=== PATIENT | female | born 1960 | race Caucasian/White ===

== ENCOUNTER → 2017-07-25 | Outpatient (CLI) | payer OTHER | LOC: YCFC.O 18:18 | PROVIDERS: ATTEND Nurse Practitioner Family | DX: Z00.00 Encounter for general adult medical examination without abnormal findings (principal); Z13.220 Encounter for screening for lipoid disorders; R53.83 Other fatigue; Z13.29 Encounter for screening for other suspected endocrine disorder; R42 Dizziness and giddiness ==

== ENCOUNTER 2017-08-11 13:40 | Emergency (ER) | payer OTHER ==
[2017-08-11 14:53] VITALS: TEMP 98.8
--- NOTE | 2017-08-11 15:23 | RAD ---
EXAM DESCRIPTION: Ankle,Left 3 Views CLINICAL HISTORY: pain,swellng,bruising COMPARISON: None. IMPRESSION: 3 views of the left ankle show no evidence of acute fracture, focal bone destruction, or joint dislocation. Mild soft tissue swelling over the lateral malleolus seen. Ankle mortise appears maintained. Large plantar and small Achilles enthesophytes of the calcaneus are seen. Increased density anterior to the tibial talar junction on lateral projection suggests possible joint effusion. Electronically signed by: Francisco Quinonez MD 08/11/2017 3:22 PM [facility]
--- NOTE | 2017-08-11 15:34 | ED.PDOC ---
History of Present Illness - General Chief Complaint: Lower Extremity Injury Stated Complaint: left ankle pain Time Seen by Provider: 08/11/17 15:26 Source: patient Exam Limitations: no limitations - History of Present Illness Initial Comments: Bryanna Crenshaw 56 y/o female seen in er with pain on left ankle.She stated that she was pinned closed to the metal fence yesterday by her horse then twisting her left ankle in the process.Noticed pain /swelling after incident and soaked left foot in warm epsom salt Occurred: yesterday Pain - Lower Extremity: moderate: Left Ankle Method of Injury: twisted Improving Factors: rest Worsening Factors: movement Associated Symptoms: pain weight bearing Allergies/Adverse Reactions: Allergies NO KNOWN ALLERGY Allergy (Verified 08/11/17 14:52) Home Medications: Ambulatory Orders NK [NK] 08/11/17 Review of Systems - Review of Systems Constitutional: States: no symptoms reported EENTM: States: no symptoms reported Respiratory: States: no symptoms reported Cardiology: States: no symptoms reported Musculoskeletal: States: see HPI All other Systems: Reviewed and Negative, No Change from Baseline Past Medical History (General) - Patient Medical History Hx Stroke: No Hx Congestive Heart Failure: No Hx Diabetes: No Surgical History: other - hysterectomy,knee ,explore lap - Vaccination History Hx Influenza Vaccination: Yes Hx Pneumococcal Vaccination: No - Social History Hx Tobacco Use: Yes - Female History Patient is a Female of Child Bearing Age (10 -59 yrs old): No Family Medical History - Family History Mother Family History: No Known Living Status: Unknown Physical Exam - Physical Exam General Appearance: Alert, Comfortable, No apparent distress Eyes, Ears, Nose, Throat: normal ENT inspection Neck: non-tender, full range of motion, supple Cardiovascular/Respiratory: regular rate, rhythm, no M/R/G, normal peripheral pulses, normal breath sounds Gastrointestinal/Abdominal: non-tender, no organomegaly Back: no CVA tenderness, no vertebral tenderness Thigh/Hip: normal inspection, non-tender, no evidence of injury Knee: normal inspection, non-tender, no evidence of injury Ankle: limited ROM - left ankle painful on dorsiflexion, pain - left ankle, soft tissue tenderness Foot: normal inspection, non-tender, no evidence of injury Mental Status: alert, oriented x 3 Skin: normal color, warm/dry Progress - EKG/XRAY/CT XRAY: ankle - join effusion left ankle Departure - Departure Clinical Impression: Sprain of ankle, left Qualifiers: Encounter type: initial encounter Involved ligament of ankle: unspecified ligament Qualified Code(s): S93.402A - Sprain of unspecified ligament of left ankle, initial encounter Time of Disposition: 15:39 Disposition: Discharge to Home or Self Care Condition: Good Departure Forms: ED Discharge - Pt. Copy, Patient Portal Self Enrollment Instructions: Ankle Sprain, DI for Ankle Sprain Referrals: Ashia Mishra NP [Primary Care Provider] - 1-2 Weeks Home Medications: Ambulatory Orders NK [NK] 08/11/17 Additional Instructions: Elevate left leg at bedtime 20 degrees until better;May use ASPERCREME apply 3 x a day for pain until better;Aleve 1-2 tablets am/pm for pain
[2017-08-11 15:57] VITALS: BP 162/92; O2SAT 94
== END 2017-08-11 15:56 | disposition home or self-care (01) ==
LOC: ER 13:40
DX: S93.402A Sprain of unspecified ligament of left ankle, initial encounter (principal); X50.1XXA Overexertion from prolonged static or awkward postures, initial encounter; Y92.9 Unspecified place or not applicable

== ENCOUNTER → 2017-08-16 | Outpatient (CLI) | payer OTHER ==
--- NOTE | 2017-08-16 11:41 | CT ---
EXAM DESCRIPTION: Abdomen/Pelvis w/wo Contrast CLINICAL HISTORY: ABN WEIGHT GAIN COMPARISON: None. TECHNIQUE: Spiral-axial scans at 5.0 - mm intervals from the lung bases through the pubic symphysis, after water - soluble oral contrast, and scans repeated through the same levels after nonionic IV contrast. Coronal and sagittal 2.0 - mm reconstructions. Delayed helical 5.0 - mm scans, same levels. No adverse reactions. Total Exam DLP: 3613.44 mGy-cm. This exam was performed according to our departmental CT dose-optimization program which includes automated exposure control, adjustment of the mA and/or kV according to patient size and/or use of iterative reconstruction technique; to reduce radiation dose to as low as reasonably achievable (ALARA). FINDINGS: Lung bases and pleura: Negative. Liver, Spleen, Stomach, Adrenal glands: Small gastroesophageal hernia. Solid organs are unremarkable. Small lateral left splenule. Pancreas/Gallbladder/Ducts: Surgical clips in the gallbladder fossa with no fluid. Enlarged caliber common bile duct. Pancreas negative. Kidneys and Ureters: Subcentimeter nonenhancing object in the left kidney most likely cyst but too small to be resolved with CT. Mesentery: No fatty stranding or fascial thickening. No free air or free fluid. Aorta: Moderate atherosclerotic calcification mid and distal aorta calcification single left renal artery ostia. Small Bowel: Contains oral contrast. No significant air-fluid levels. Terminal Ileum/Cecum: Normal caliber containing oral contrast. Small lymph nodes abutting these structures. Appendix not seen. Normal density of the surrounding fat. Colon: Normal caliber. No significant redundancy. Pelvic Organs: Vaginal cuff is unremarkable. No fluid in the cul-de-sac. Ovarian tissue not seen. No adnexal mass. No radiodense stones in the urinary bladder. Spine and Bony Pelvis: Spondylosis in the included thoracic spine. Also T12-L1. Abdominal Wall/Back Soft Tissues diastases of the anterior midline abdominal wall at the umbilicus but not containing bowel. IMPRESSION: 1. No peritoneal or retroperitoneal mass. No free fluid or free air. Normal size of the solid organs. 2. Cholecystectomy, with typical dilation of the common bile duct. 3. Probable cyst left kidney, too small to be resolved by CT. Small gastroesophageal hernia. 4. Diastases of the anterior midline abdominal wall at the umbilicus but no bowel herniation. Electronically signed by: Josue Bernabe MD 08/16/2017 11:40 AM [facility]
--- NOTE | 2017-08-16 14:37 | MRI ---
EXAM DESCRIPTION: Lower Extremity, right: MRI. CLINICAL HISTORY: RT FOOT PAIN COMPARISON: CT scan of abdomen and pelvis on the same visit. TECHNIQUE: Multiplanar, high-field MRI, multiple sequences, without contrast: Right ankle. FINDINGS: Effusion in the lateral gutter of the ankle mortise. No osteochondral lesions in the ankle mortise, posterior horn mid subtalar joints. No osteochondral lesions in the mid tarsal joints. No effusions in these joints. Sinus tarsi is unremarkable. Medial and lateral stabilizing ligaments of the ankle are unremarkable. Soft tissue edema posterior to the flexor retinaculum anterior to the Achilles tendon. Immediate signal in the distal peroneal is brevis tendon. Normal signal of the insertion of the base of the metatarsal. Medial posterior flexor tendons with normal signal. No fluid or soft tissue mass in the tarsal tunnel. Normal signal in the included plantar fascia and the Achilles tendon. No abnormal marrow edema in the included osseous structures. IMPRESSION: 1. Effusion in the lateral gutter of the ankle mortise. The ankle mortise is congruent. No osteochondral lesions or loose bodies. Edema between the Achilles tendon and the posterior flexor retinaculum. 2. Included ligaments and tendons with normal signal. Electronically signed by: Josue Bernabe MD 08/16/2017 2:36 PM [employer] INSTRU[employer]
== END ==
LOC: MRI 07:08
PROVIDERS: ATTEND Nurse Practitioner Family
DX: R10.9 Unspecified abdominal pain (principal); Q79.59 Other congenital malformations of abdominal wall; M79.671 Pain in right foot; R60.0 Localized edema; Z98.890 Other specified postprocedural states

== ENCOUNTER 2017-08-18 16:37 | Emergency (ER) | payer OTHER ==
--- NOTE | 2017-08-18 16:54 | ED.PDOC ---
History of Present Illness - General Chief Complaint: ENT Problem Stated Complaint: Nosebleed Time Seen by Provider: 08/18/17 16:50 Source: patient - History of Present Illness Initial Comments: Bryanna Crenshaw 56 y/o female stated that she started with nosebleed on left nostril this afternoon x 3 it stopped with pressure on nostrils then had similar one w/c stopped then third time even with pressure for 30 minutes bleeding got worse and did not sopped this time accompanied by sharp headache behind her nose and eyes radiating to top of head.No history of any trauma, nasal congestion,sneezing or cough. Timing/Duration: intermittent, this afternoon EENT Location: nose - left Prearrival Treatment: squeezing nostrils Improving Factors: nothing, eating Associated Symptoms: other - see hpi Allergies/Adverse Reactions: Allergies NO KNOWN ALLERGY Allergy (Verified 08/18/17 16:50) Home Medications: Ambulatory Orders NK [NK] 08/11/17 Review of Systems - Review of Systems Constitutional: States: no symptoms reported EENTM: States: see HPI Respiratory: States: no symptoms reported Cardiology: States: no symptoms reported Gastrointestinal/Abdominal: States: no symptoms reported Genitourinary: States: no symptoms reported Musculoskeletal: States: no symptoms reported Neurological: States: see HPI, headache Past Medical History (General) - Patient Medical History Hx Stroke: No Hx Congestive Heart Failure: No Hx Diabetes: No Surgical History: cholecystectomy, other - hysterectomy ,knee - Vaccination History Hx Influenza Vaccination: Yes - 2016 Hx Pneumococcal Vaccination: No - Social History Hx Tobacco Use: No Hx Physical Abuse: No Hx Emotional Abuse: No Hx Suspected Abuse: No - Activities of Daily Living Grooming Ability: Independent Eating (Feeding) Ability: Independent Toileting Ability: Independent Family Medical History - Family History Mother Family History: No Known Living Status: Unknown Physical Exam - Physical Exam General Appearance: Alert, Anxious, No apparent distress Eye Exam: bilateral normal Ear Exam: bilateral ear: auricle normal, canal normal, TM normal Nasal Exam: active bleeding - left nostril Throat Exam: normal mouth inspection, pharynx normal Neck: non-tender, full range of motion, supple Cardiovascular/Respiratory: regular rate, rhythm, no M/R/G, normal peripheral pulses Neurologic: alert, oriented x 3 Skin Exam: normal color, warm/dry Progress - Progress Progress: 08/18/17 18:21 Last Vital Signs Temp 98.8 F 08/18/17 16:44 Pulse 96 H 08/18/17 17:40 Resp 18 08/18/17 17:40 BP 158/78 08/18/17 17:40 Pulse Ox 97 08/18/17 17:40 - Results/Orders Results/Orders: Laboratory Tests 08/18/17 08/18/17 08/18/17 17:28 17:28 17:28 WBC 8.8 RBC 4.87 Hgb 14.1 Hct 42.3 MCV 86.9 MCH 28.9 MCHC 33.3 RDW 13.3 Plt Count 325 MPV 6.9 L Absolute Neuts (auto) 5.50 Absolute Lymphs (auto) 2.40 Absolute Monos (auto) 0.70 Absolute Eos (auto) 0.20 Absolute Basos (auto) 0.10 Neutrophils % 62.4 Lymphocytes % 26.7 Monocytes % 8.3 Eosinophils % 2.0 Basophils % 0.6 PT 9.9 INR 0.870 Sodium 143 Potassium 3.7 Chloride 110 Carbon Dioxide 24 Anion Gap 12.7 BUN 14 Creatinine 0.59 L BUN/Creatinine Ratio 23.7 H Random Glucose 112 H Serum Osmolality 286.2 Calcium 9.3 Total Bilirubin 0.5 AST 26 ALT 24 Alkaline Phosphatase 72 Serum Total Protein 7.3 Albumin 4.1 Globulin 3.2 Albumin/Globulin Ratio 1.3 - EKG/XRAY/CT CT Ordered: Yes - head-no acute abnormality Procedures - Additional Procedures Progress: Anterior packing done with rhino pack on the left nostril.tolerated well Departure - Departure Clinical Impression: Epistaxis not due to trauma Headache Qualifiers: Headache type: unspecified Headache chronicity pattern: unspecified pattern Intractability: not intractable Qualified Code(s): R51 - Headache Time of Disposition: 18:26 Disposition: Discharge to Home or Self Care Departure Forms: ED Discharge - Pt. Copy, Patient Portal Self Enrollment Instructions: DI for Nosebleed, Nosebleed, Nosebleeds (Alternative Therapy) Referrals: Ashia Mishra NP [Primary Care Provider] - 1-2 Weeks Home Medications: Ambulatory Orders NK [NK] 08/11/17 Additional Instructions: Return to [facility] - ER for removal of packing PM-08/19/17 Follow up with primary Md 08/22/2017 as needed
[2017-08-18] MEDS ORDERED: OXYMETAZOLINE NASAL SPRAY 15 ML BTTL BNAS PRN (17:15)
[2017-08-18] MEDS ORDERED: MORPHINE SULFATE INJ 10 MG/ML VIAL IM ONE (17:52)
[2017-08-18] MEDS ORDERED: PROMETHAZINE HCL INJ 25 MG/ML VIAL IM ONE (17:52)
--- NOTE | 2017-08-18 18:19 | CT ---
EXAM: Head CLINICAL INDICATION: 56-year-old female with headache and nosebleed. COMPARISON: None. TECHNIQUE: CT brain without contrast. This exam was performed according to our departmental dose optimization program which includes use of automated exposure control, adjustment of the mA and/or kV according to patient size and/or use of iterative reconstruction technique. FINDINGS: The ventricles, sulci, and cisterns are within normal limits. The griffith-white matter differentiation is preserved. There is no mass effect, midline shift, intra- or extra-axial fluid collection/acute hemorrhage. The osseous structures are unremarkable. The paranasal sinuses and mastoid air cells are clear. IMPRESSION: No acute intracranial abnormalities. Electronically signed by: Marta Howe MD 08/18/2017 6:18 PM [employer]ACING GRINDER
[2017-08-18 18:57] VITALS: BP 162/87; TEMP 98.1; O2SAT 96
== END 2017-08-18 18:40 | disposition home or self-care (01) ==
LOC: ER 16:37
DX: R04.0 Epistaxis (principal); R51 Headache
CPT/HCPCS: 36415; 70450; 80053; 85025; 85610; J2270; J2550

== ENCOUNTER → 2017-08-31 | Outpatient (CLI) | payer OTHER | LOC: LAB.O 10:50 | PROVIDERS: ATTEND Internal Medicine Gastroenterology | DX: R19.7 Diarrhea, unspecified (principal) ==

== ENCOUNTER → 2017-09-06 | Outpatient (CLI) | payer OTHER | LOC: LAB.O 15:09 | PROVIDERS: ATTEND Internal Medicine Gastroenterology | DX: R19.7 Diarrhea, unspecified (principal) ==

== ENCOUNTER → 2017-10-28 | Outpatient (CLI) | payer OTHER | LOC: LAB.O 15:25 | PROVIDERS: ATTEND Nurse Practitioner Family | DX: R10.829 Rebound abdominal tenderness, unspecified site (principal); R30.0 Dysuria ==

== ENCOUNTER → 2017-10-28 | Outpatient (CLI) | payer OTHER ==
--- NOTE | 2017-10-31 00:30 | RAD ---
Procedure: XR ABDOMEN 1 VIEW (KUB) Exam Date: 10/28/2017 Ordering Provider: AMIE Mishra Clinical Indication: ABD TENDERNESS Comparison: 08/16/2017 Findings: There is no bowel distention. There is no definite pneumoperitoneum. Diaphragm excluded from the exam. There are no suspicious calcifications. There is no acute skeletal abnormality. Impression: 1. No acute findings. Electronically signed by: Kailash Chacon MD 10/31/2017 12:29 AM CDT
== END ==
LOC: RAD 19:38
PROVIDERS: ATTEND Nurse Practitioner Family
DX: R10.829 Rebound abdominal tenderness, unspecified site (principal)

== ENCOUNTER → 2017-11-16 | Outpatient (CLI) | payer OTHER ==
--- NOTE | 2017-11-17 10:09 | RAD ---
EXAM DESCRIPTION: Knee,Left Complete CLINICAL HISTORY: 57 years, Female, KNEE PAIN COMPARISON: None TECHNIQUE: Four views of the left knee including standing views FINDINGS: No fracture or dislocation. Bones appear normally mineralized with normal trabecular pattern. Normal appearance of medial and lateral compartments on frontal view. Mild spurring of tibial spines. Lateral view shows normal position of the patella. No patellar spurring or enthesopathy. Question small suprapatellar knee joint effusion. Normal contour of quadriceps and patellar tendons. No abnormal patellar tilt or subluxation on patellar sunrise view. IMPRESSION: Negative for fracture or dislocation. Electronically signed by: Felix Sampson MD 11/17/2017 10:08 AM CDT
--- NOTE | 2017-11-17 10:10 | RAD ---
EXAM DESCRIPTION: Pelvis CLINICAL HISTORY: 57 years Female, HIP PAIN COMPARISON: None. TECHNIQUE: Single frontal view of pelvis and hips FINDINGS: No fracture of the bones of the pelvic ring. No bony destructive lesion. Bone island in the right ilium. Sacrum appears intact. Normal proximal femurs without hip fracture or dislocation. Degenerative changes are present at the pubic symphysis. IMPRESSION: Negative for fracture or bony destructive lesion. Electronically signed by: Felix Sampson MD 11/17/2017 10:09 AM CDT
== END ==
LOC: RAD 12:11
PROVIDERS: ATTEND Nurse Practitioner Family
DX: M25.562 Pain in left knee (principal); M25.552 Pain in left hip

== ENCOUNTER 2018-06-06 12:33 | Observation (INO) | payer OTHER ==
--- NOTE | 2018-06-06 12:46 | ED.PDOC ---
History of Present Illness - General Chief Complaint: Cardiovascular Problem Stated Complaint: CHEST PAIN WITH NEAR SYNCOPE Time Seen by Provider: 06/06/18 12:39 Source: patient Exam Limitations: no limitations - History of Present Illness Initial Comments: THE PATIENT PRESENTS TO THE ED WITH COMPLAINT OF CHEST PAIN THAT IS CENTRALIZED IN NATURE. SHE STATES THIS HAS BEEN INTERMITTENT SINCE YESTERDAY.THE PATIENT STATES THAT THE PAIN IS PRESSURE-LIKE IN NATURE.THE PATIENT STATES THAT AMBULATION CAUSES HER TO HAVE NEAR SYNCOPE DUE TO THIS ISSUE. THE PATIENT ALSO COMPLAINED OF SHORTNESS OF BREATH AND THE SENSATION THAT SHE IS UNABLE TO CATCH HER BREATH DUE TO THIS ISSUE.FURTHERMORE THE PATIENT ALSO COMPLAINS OF GENERALIZED ABDOMINAL PAIN WITH THIS ISSUE. THE PATIENT STATES THAT IT IS SHARP IN NATURE AND SHE IS NOTED TO HAVE DIARRHEA ASSOCIATED WITH THIS ISSUE.THE PATIENT STATES NO FEVER, CHILLS, VOMITING, OR VERTIGO WITH EXTENSIVE QUESTIONING. Timing/Duration: 24 hours Severity: moderate Improving Factors: rest Worsening Factors: movement Associated Symptoms: chest pain, malaise, shortness of breath, weakness Allergies/Adverse Reactions: Allergies Promethazine [From Phenergan] Adverse Reaction (Verified 06/06/18 12:57) Home Medications: Ambulatory Orders Hydroxyzine HCl 50 mg PO BEDTIME 06/06/18 Losartan Potassium & Hydrochlo [Losartan Potassium/Hydroc 50-12.5 mg] 1 tab PO DAILY 06/06/18 Review of Systems - Review of Systems Review of Systems: 06/06/18 12:46 A 10 POINT REVIEW OF SYSTEMS WAS DONE AT THE PATIENT'S BEDSIDE AND IS NEGATIVE EXCEPT NOTED IN THE PATIENT'S HPI Past Medical History (General) - Patient Medical History Hx Seizures: No Hx Stroke: No Hx Dementia: No Hx Asthma: No Hx of COPD: No Hx Cardiac Disorders: No Hx Congestive Heart Failure: No Hx Pacemaker: No Hx Hypertension: No Hx Thyroid Disease: No Hx Diabetes: No Hx Gastroesophageal Reflux: No Hx Renal Disease: No Hx Cancer: No Hx of HIV: No Hx Hepatitis C: No Hx MRSA: No - Vaccination History Hx Tetanus, Diphtheria Vaccination: No Hx Influenza Vaccination: Yes Hx Pneumococcal Vaccination: No - Social History Hx Tobacco Use: No Hx Chewing Tobacco Use: No Hx Alcohol Use: No Hx Substance Use: No Hx Substance Use Treatment: No Hx Depression: No Hx Physical Abuse: No Hx Emotional Abuse: No Hx Suspected Abuse: No - Female History Patient : No Family Medical History - Family History Mother Family History: No Known Living Status: Unknown Physical Exam - Physical Exam General Appearance: Alert, Comfortable Eye Exam: bilateral normal Ears, Nose, Throat: hearing grossly normal, normal ENT inspection Neck: non-tender, full range of motion Respiratory: chest non-tender, lungs clear, normal breath sounds Cardiovascular/Chest: normal peripheral pulses, regular rate, rhythm Peripheral Pulses: radial,right: 2+, radial,left: 2+ Gastrointestinal/Abdominal: normal bowel sounds, other - THERE IS TTP OF THE LLQ NOTED ON EXAMINATION AT THIS TIME. Back Exam: normal inspection, no CVA tenderness Extremity: normal range of motion, non-tender Neurologic: autocad operator II-XII nml as tested, no motor/sensory deficits, alert, normal mood/affect, oriented x 3 Skin Exam: normal color, warm/dry Progress - Progress Progress: 06/06/18 12:50 MDM (DDX) MYOCARDIAL INFARCTION, UNSTABLE ANGINA, ANGINA, ANXIETY, PULMONARY EMBOLISM, ATYPICAL CHEST PAIN, AORTIC DISSECTION, PNEUMONIA, GASTROESOPHAGEAL REFLUX DISEASE, COSTOCHONDRITIS, PLEURISY, CHEST WALL PAIN, DYSPNEA, CONGESTIVE HEART FAILURE, CHRONIC OBSTRUCTIVE PULMONARY DISEASE, BRONCHITIS, BILIARY DISEASE. PT APPEARS TO BE AT MODERATE RISK FOR ANGINA/ACS WHICH WE WILL EVALUATE VIA CARDIAC ENZYMES. PT WILL HAVE CXR TO EVALUATE FOR AORTIC DISSECTION/PNA/CHF AT THIS TIME. PT APPEARS TO HAVE LOW LIKELIHOOD OF BILIARY DZ 2/2 TO NO PAIN IN THE RIGHT UPPER QUADRANT NOTED. DUE TO HER SOB WELL CHEST PAIN, WILL ORDER CT CHEST AND DUE TO ABDOMINAL PAIN WILL ORDER A CT AP TO EVALUATE FOR INTRAABDOMINAL PATHOLOGY. DISPO WILL BE DEPENDENT UPON FINDINGS DURING THE PATIENT'S ED WORK UP 06/06/18 14:07 THE PATIENT NOTES DECREASE IN HER PAIN S/P MORPHINE SULFATE ADMINISTRATION. WE HAVE DISCUSSED ALL LABS EXCEPT UA RESULTS. THE PATIENT IS ADVISED WE WILL DISCUSS HER UA/CT RESULTS WHEN AVAILABLE. 06/06/18 14:32 THE PATIENT REMAINS STABLE AT THIS TIME. I HAVE ADVISED THE PATIENT OF AVAILABLE LAB AND RADIOLOGICAL RESULTS. SHE IS ADVISED THAT SHE WILL BE ADMITTED TO THE HOSPITAL DUE TO HER CHEST PAIN AND NEAR SYNCOPE. THE PATIENT IS IN AGREEMENT W/ THIS PLAN. SHE HAS NO QUESTIONS AT THIS TIME. - EKG/XRAY/CT EKG: Sinus, Tachy, nonspecific ST T wave Chg Comments: REGULAR 102 BPM, AXIS IS LEFT - Consult/PCP Time Called: 14:31 Consult/PCP: MR. LOGAN VENEER JOINTER RETURNER Consult Reason/Comments: DISCUSSED LAB/RADIOLOGICAL DATE. AGREES TO ADMIT. Departure - Departure Clinical Impression: Abdominal pain, Flank pain Chest pain Qualifiers: Chest pain type: unspecified Qualified Code(s): R07.9 - Chest pain, unspecified Disposition: Admit Patient Condition: Fair Home Medications: Ambulatory Orders Hydroxyzine HCl 50 mg PO BEDTIME 06/06/18 Losartan Potassium & Hydrochlo [Losartan Potassium/Hydroc 50-12.5 mg] 1 tab PO DAILY 06/06/18 Decision To Admit - Decistion To Admit Decision to Admit Reason: Admit from ER Decision to Admit Date: 06/06/18 Decision to Admit Time: 14:35
[2018-06-06] MEDS ORDERED: ONDANSETRON INJ 4 MG/2 ML VIAL IV ONE (12:54)
[2018-06-06] MEDS ORDERED: SODIUM CHLORIDE 0.9% 1000ML 1,000 ML IVS ONE (12:55)
[2018-06-06] MEDS: SODIUM CHLORIDE 0.9% (FLUSH) 10 ML SYG IV PRN ×2 (13:08→16:15)
[2018-06-06] MEDS ORDERED: MORPHINE SULFATE INJ 10 MG/ML VIAL IV ONE ×2 (13:23→14:31)
--- NOTE | 2018-06-06 14:17 | CT ---
EXAM DESCRIPTION: Abdomen/Pelvis w/Contrast CLINICAL HISTORY: ABDOMINAL PAIN. COMPARISON: August 16, 2017 TECHNIQUE: CT of the abdomen and Pelvis was performed with IV contrast. This exam was performed according to our departmental dose-optimization program, which includes automated exposure control, adjustment of the mA and/or kV according to patient size and/or use of iterative reconstruction technique. FINDINGS: No lung base abnormality. No pneumoperitoneum, adenopathy or ascites. No abdominal aortic aneurysm or dissection. There is a small hiatal hernia. No gastric wall thickening. A 4.5 cm diverticulum arises from the duodenum medially at the junction of the second and third segments. A second 4 cm diverticulum arises from the superior margin of the third duodenal segment. The gallbladder is surgically absent. The liver, spleen, pancreas, adrenals and kidneys are unremarkable. No dilated small bowel loops or mesenteric inflammation. No bladder wall thickening. The uterus and ovaries are unremarkable for patient's age. Postoperative changes are noted in the rectosigmoid colon without colonic wall thickening or pericolonic inflammation. There is occasional sigmoid diverticulosis. No concerning bone lesion. IMPRESSION: Postoperative changes in the colon and colonic diverticulosis, but no diverticulitis or other acute abnormality in the abdomen or pelvis to explain patient's symptoms. Two large duodenal diverticula without diverticulitis or other acute complication. Electronically signed by: Fredo Butcher MD 06/06/2018 2:15 PM CERTIFIED PERSONAL FINANCE COUNSELOR
--- NOTE | 2018-06-06 14:20 | CT ---
EXAM DESCRIPTION: CTA Chest CLINICAL HISTORY: SOB COMPARISON: None available TECHNIQUE: Chest CTA was performed with IV contrast including MIP and/or Three-D reconstructed images. This exam was performed according to our departmental dose-optimization program, which includes automated exposure control, adjustment of the mA and/or kV according to patient size and/or use of iterative reconstruction technique. FINDINGS: Limited sensitivity for dictation of pulmonary embolus and distal branches of the pulmonary arteries due to delayed timing of imaging relative to contrast bolus of menstruation. With this in mind, no central pulmonary bolus is identified. Coronary artery calcifications are noted. No thoracic aortic aneurysm or dissection. No pleural or pericardial effusion. Small hiatal hernia. No mediastinal or hilar adenopathy. No airspace consolidation or lung mass. No axillary adenopathy, breast or other chest wall lesion. No fracture or pneumothorax. IMPRESSION: Slightly limited examination as detailed above with no evidence of central pulmonary embolus or other acute intrathoracic abnormality. Electronically signed by: Fredo Butcher MD 06/06/2018 2:19 PM MEDICAL BILLING ASSISTANT
--- NOTE | 2018-06-06 15:03 | HP ---
SUPERVISING PHYSICIAN: Jn Calvin M.D. CHIEF COMPLAINT: Chest pain with near syncope. HISTORY OF PRESENT ILLNESS: This is a 57 year-old female who came to the Emergency Room with chest pain. She states that the last couple of days she has had a feeling where she really could not catch her breath. When she tries to take a deep breath she feels like she is going to pass out. This has been associated with some chest pain. Also, she has had some right flank pain and some abdominal discomfort and even had a few episodes of diarrhea as well. She denies any fever or chills, but due to the chest pain today she was brought to the Emergency Room. Her workup included multiple radiographs as well as labs. She was eventually given morphine for the pain and that eliminated the pain at that point. Her labs showed a mild elevation in hemoglobin at 16.1 and hematocrit was 48.2, platelet count 382. There was no WBC elevation. Coags were negative. There was a mild elevation in BUN at 19, otherwise glucose is 171 and the rest of her chemistry was unremarkable. She had 2 negative troponins, one at 1255 and one at 1435. EKG showed nonspecific ST changes and in fact she has been to a photo tube assembler due to the abnormal EKG. She states that she saw one in [place] and he placed her on Losartan/HCTZ for hypertension, and plans on doing a stress test at some point but she has not had one as of yet. She states she has not had any abnormal new stresses and states that she britt with stress pretty well. PAST MEDICAL HISTORY: 1. Hypertension. 2. Insomnia. PAST SURGICAL HISTORY: 1. Neck surgery. 2. Two right knee surgeries. 3. Hysterectomy. 4. Cholecystectomy. 5. Small bowel resection and revision of the small bowel resection due to what sounds like a leaking anastomosis. CURRENT MEDICATIONS: 1. Hydroxyzine 50 mg p.o. at bedtime. 2. Losartan/HCTZ 50/12.5 p.o. daily. ALLERGIES: PROMETHAZINE. FAMILY HISTORY: Reviewed and noncontributory. SOCIAL HISTORY: The patient has a distant history of smoking but quit a long time ago. Does not drink alcohol or utilize illicit drugs. She is . REVIEW OF SYSTEMS: CONSTITUTIONAL: No fever or chills. No recent weight loss or weight gain. HEENT: No headaches, vision changes, ear pain, nasal congestion or throat pain. CARDIOVASCULAR: Positive for chest pain. No palpitations. No peripheral edema. RESPIRATORY: Positive for some shortness of breath. No cough or hemoptysis. GASTROINTESTINAL: No nausea or vomiting. She did have episodes of diarrhea. No constipation. Positive for abdominal pain, right flank as well as bilateral lower abdominal. GENITOURINARY: No dysuria, frequency or flank pain. HEMATOLOGIC: No easy bruising or transfusion reaction. ENDOCRINE: No polydipsia, polyuria or polyphagia. No heat or cold intolerance. NEUROLOGIC: Near syncope but no seizures, paresthesias or full syncope. INTEGUMENT: No rashes, lesions or wounds. PHYSICAL EXAMINATION: VITAL SIGNS: Blood pressure 110/53, heart rate 84, respiratory rate 20, temperature 98.0, oxygen saturation 100%. GENERAL: Ms. Crenshaw is a 57 year-old female in no active distress currently. HEENT: Head is normocephalic and atraumatic. Eyes: Pupils are equal and reactive. Nose: With no drainage. Throat: Moist mucosa. NECK: Supple. Midline trachea. No jugular venous distention. CHEST: Symmetrical with equal rise and fall of the chest with inspiration and expiration. Lung sounds are clear to auscultation bilaterally. CARDIOVASCULAR: The patient has a regular rate and rhythm. Normal S1 and S2. ABDOMEN: Soft. Positive bowel sounds. GENITOURINARY: Exam is deferred. EXTREMITIES: Lower extremities with no edema, 2+ pulses. Capillary refill is less than 2 seconds. NEUROLOGIC: The patient is alert and oriented. Moves all extremities. Extraocular movements are intact. LABORATORY: As discussed in the History of Present Illness. She had a CTA of the chest which was negative for pulmonary embolism and essentially negative for any other acute findings. CT scan of the abdomen and pelvis was done as well which shows chronic postoperative changes but no acute infectious process. ASSESSMENT: 1. Chest pain, rule out ACS. 2. Hypertension. 3. Dehydration. 4. Near syncope. PLAN: Will place the patient in the observation status with serial cardiac enzymes as well as EKGs. She is on continuous cardiac monitoring. Will monitor this as well. I am going to go ahead and check her thyroid numbers and place her on DVT prophylaxis as well. In the event everything is negative, I recommend that we contact her photo tube assembler that she saw about a month ago in [place] and see if he would like to see her sooner. #[id number] MTDD
[2018-06-06] MEDS ORDERED: ACETAMINOPHEN 325 MG TAB PO PRN (15:51)
[2018-06-06] MEDS ORDERED: SODIUM CHLORIDE 0.9% (FLUSH) 10 ML SYG IV PRN (15:51)
[2018-06-06] MEDS ORDERED: MORPHINE SULFATE INJ 10 MG/ML VIAL IV PRN (15:51)
[2018-06-06] MEDS ORDERED: IV SET AND CAP CHANGE INJ INJ SCH (16:00)
[2018-06-06] MEDS ORDERED: ENOXAPARIN SODIUM 40 MG/0.4 ML SYG SUBCU SCH (16:00)
[2018-06-06] MEDS: LACTATED RINGERS 1,000 ML IVS PRN (16:15)
--- NOTE | 2018-06-06 17:09 | US ---
Procedure: US CAROTID DOPPLER BILATERAL Exam Date: 06/06/2018 Ordering Provider: Filemon Vick Clinical Indication: near syncope Comparison: None TECHNIQUE : Real-time cerebrovascular ultrasonography was obtained from sternal notch to the angle of the mandible bilaterally utilizing griffith scale, color flow and spectral Doppler analysis. Systolic velocity ratios were calculated for internal carotid artery to common carotid artery bilaterally. FINDINGS: RIGHT CAROTID BIFURCATION: Mild atherosclerotic plaque. Peak systolic and end-diastolic velocities in the right internal carotid artery are 109 and 37 cm/s. Internal carotid/common carotid ratio is 1.3. Right vertebral flow is antegrade. LEFT CAROTID BIFURCATION: Mild atherosclerotic plaque. Peak systolic and end-diastolic velocities in the left internal carotid artery are 99 and 34 cm/s. Internal carotid/common carotid ratio is 1.0. Left vertebral flow is antegrade. IMPRESSION: 1. Mild atherosclerotic plaque in each carotid bulb and ICA origin. 2. There is no significant stenosis (less than 50%) at either ICA origin. 3. Bilateral antegrade vertebral artery flow. Electronically signed by: Kailash Chacon MD 06/06/2018 5:08 PM [facility]
[2018-06-06] MEDS ORDERED: HYDROcodone 5MG/APAP 325MG 1 EA TAB ONE (17:28)
[2018-06-06] MEDS: HYDROcodone 5MG/APAP 325MG 1 EA TAB PO PRN (17:32)
[2018-06-06] MEDS ORDERED: ONDANSETRON INJ 4 MG/2 ML VIAL IV PRN (20:24)
[2018-06-06] MEDS ORDERED: hydrOXYzine HCl 10 MG TAB ONE (20:45)
[2018-06-06] MEDS: SODIUM CHLORIDE 0.9% (FLUSH) 10 ML SYG IV SCH (20:50)
[2018-06-06] MEDS ORDERED: hydrOXYzine HCl 25 MG TAB PO SCH (21:00)
[2018-06-07] MEDS ORDERED: HYDROmorphone HCL INJ 2 MG/ML VIAL ONE (01:04)
[2018-06-07] MEDS ORDERED: HYDROmorphone HCL INJ 2 MG/ML VIAL IV ONE (01:07)
[2018-06-07] MEDS ORDERED: ONDANSETRON INJ 4 MG/2 ML VIAL IV ONE (01:09)
[2018-06-07] MEDS: LACTATED RINGERS 1,000 ML IVS PRN (01:36)
--- NOTE | 2018-06-07 02:29 | CT ---
CT head without contrast on 06/07/2018 CLINICAL INDICATION: Headache, nausea and vomiting TECHNIQUE: Multiple axial images are obtained throughout the head without the administration of contrast. This exam was performed according to our departmental dose-optimization program, which includes automated exposure control, adjustment of the mA and/or kV according to patient size and/or use of iterative reconstruction technique. Total DLP is 859.97 mGy*cm. COMPARISON: 03/03/2018 FINDINGS: There is no hydrocephalus. There is no CT evidence of acute infarct. There is no hemorrhage. There are no abnormal extra-axial fluid collections. There is no mass, mass effect or midline shift. No bony abnormality is noted. IMPRESSION: No acute intracranial abnormality. Electronically signed by: Aren King 06/07/2018 2:[address] [facility]
[2018-06-07] MEDS: NITROGLYCERIN 0.4 MG 25 EA TAB SL PRN ×2 (05:18→05:24)
[2018-06-07] MEDS ORDERED: LOSARTAN POTASSIUM 25 MG TAB PO SCH (09:00)
[2018-06-07] MEDS ORDERED: ASPIRIN TABLET 325 MG TAB PO SCH (09:00)
[2018-06-07] MEDS: SODIUM CHLORIDE 0.9% (FLUSH) 10 ML SYG IV SCH (09:05)
[2018-06-07] MEDS ORDERED: KETOROLAC TROMETHAMINE INJ 30 MG/ML VIAL IV ONE (09:39)
--- NOTE | 2018-06-07 10:26 | RAD ---
EXAM DESCRIPTION: Abdomen Flat Upright CLINICAL HISTORY: 57 years Female, N/V difuse abdominal pain COMPARISON: None. FINDINGS: Supine and upright views of the abdomen. Unremarkable bowel gas pattern. No mass or calculus. Clips from previous cholecystectomy. Lung bases clear. IMPRESSION: Negative Electronically signed by: Bam Desouza MD 06/07/2018 10:24 AM [facility]
[2018-06-07] MEDS: HYDROcodone 5MG/APAP 325MG 1 EA TAB PO PRN (11:47)
[2018-06-07] MEDS ORDERED: MAGNESIUM HYDROXIDE 30 ML UD PO ONE (12:18)
[2018-06-07 13:41] VITALS: BP 110/78; TEMP 98.4; O2SAT 98
--- NOTE | 2018-06-13 10:47 | DS ---
SUPERVISING PHYSICIAN: Jn Calvin MD ADMISSION DIAGNOSIS: 1. Chest pain, rule out acute coronary syndrome. 2. Hypertension. 3. Dehydration. 4. Near syncope. DISCHARGE DIAGNOSIS: 1. Chest pain with no evidence of acute myocardial infarction with negative troponins and no acute change on EKG, felt to be secondary to possible severe constipation with the patient having pain resolved after being given medication for constipation and no recurrence prior to discharge. 2. Hypertension, stable. 3. Dehydration, resolved. 4. Near syncopal episode, uncertain etiology with no acute findings on admission, likely from dehydration with no additional episodes during admission. REASON FOR HOSPITALIZATION: This is a 57-year-old female who came to the Emergency Room with chest pain. She states that the last couple of days she has had a feeling where she really could not catch her breath. When she tries to take a deep breath she feels like she is going to pass out. This has been associated with some chest pain. Also, she has had some right flank pain and some abdominal discomfort and even had a few episodes of diarrhea as well. She denies any fever or chills, but due to the chest pain today she was brought to the Emergency Room. Her workup included multiple radiographs as well as labs. She was eventually given morphine for the pain and that eliminated the pain at that point. Her labs showed a mild elevation in hemoglobin at 16.1 and hematocrit was 48.2, platelet count 382. There was no WBC elevation. Coags were negative. There was a mild elevation in BUN at 19, otherwise glucose is 171 and the rest of her chemistry was unremarkable. She had 2 negative troponins, one at 1255 and one at 1435. EKG showed nonspecific ST changes and in fact she has been to a survey research analyst due to the abnormal EKG. She states that she saw one in [place] and he placed her on Losartan/HCTZ for hypertension, and plans on doing a stress test at some point but she has not had one as of yet. She states she has not had any abnormal new stresses and states that she britt with stress pretty well. LABORATORY: CBC on admission showed white count 6,300, hemoglobin 16.1, hematocrit 40.2, platelet count 360,000. Differential was without a left shift. On discharge, white count was 10,700. Coagulation studies showed normal PT and PT-T. Chemistries on admission and on discharge showed normal electrolytes with BUN 16, creatinine 0.79. She has four troponins which were all less than 0.02. Amylase and lipase were both within normal limits. TSH normal at 1.40. Urinalysis was within normal limits. RADIOLOGY: She had an abdominopelvic CT in the Emergency Room with contrast and per radiologic interpretation showed postsurgical changes and colonic diverticulosis, but no diverticulitis or other acute abnormalities in the abdomen or pelvis to explain the patient's symptoms. Two large duodenal diverticula without diverticulitis or other complications noted. Please see that report for full details. She had carotid artery studies and per radiologic interpretation showed mild atherosclerotic plaque in each carotid bulb and internal carotid artery origin. There was no significant stenosis, less than 50% either ICA original, bilateral antegrade vertebral artery flow noted. She had a CT of the head without contrast and per radiologic interpretation showed no hydrocephalus, no CT evidence of acute infarct, no hemorrhage, no extraaxial fluid collections, no mass effects or midline shift, no bony abnormalities noted. On the morning of discharge, she had abdominal x- ray which was negative per radiologic interpretation. EKG on admission showed sinus tachycardia at 102 with no acute changes. HOSPITAL COURSE: Ms. Crenshaw was admitted on 06/06/18 for exertional chest pain and was ruled out with cardiac enzymes, EKGs. She also had near syncopal episode and workup for that was negative. It was felt this was probably related to dehydration. Also of note, the patient was showing severe constipation on x-rays which was probably resulting in her left upper chest pain. She was given enema with good results and felt she was doing well enough to continue with outpatient management. I did discuss with her utilizing a more aggressive approach with laxatives and the patient opted to try GoLytely, but wanted to go home and do it at home. It was felt she was clinically stable enough to do this as an outpatient. PLAN: Ms. Crenshaw was discharged on 06/07/18 with instructions to followup with Dr. Cavazos as directed. She was to take medications as instructed and advance her diet as tolerated. She was to return to the hospital should she have any concerning symptoms. Diet at discharge was to increase fiber as tolerated. Activity to increase as tolerated. NEW MEDICATIONS AT DISCHARGE: 1. Magnesium hydroxide 30 mL daily as needed for constipation. 2. Nitroglycerin 0.4 mg tablets sublingual q.5 minutes for chest pain. 3. Zofran 4 mg daily as needed. 4. MiraLAX 17 grams daily, #20. 5. GoLytely as directed. DISPOSITION: The patient was discharged to the care of her family. CONDITION AT DISCHARGE: Stable and improved. #[id number] MTDD
== END 2018-06-07 14:14 | disposition home or self-care (01) ==
LOC: ER 12:33 → MS 15:01
PROVIDERS: ADMIT Nurse Practitioner; ATTEND Nurse Practitioner Family
DX: R07.89 Other chest pain (principal); I10 Essential (primary) hypertension; E86.0 Dehydration; R55 Syncope and collapse; R06.02 Shortness of breath; G47.00 Insomnia, unspecified; R51 Headache; I65.23 Occlusion and stenosis of bilateral carotid arteries; I25.10 Atherosclerotic heart disease of native coronary artery without angina pectoris; K57.30 Diverticulosis of large intestine without perforation or abscess without bleeding; Z79.899 Other long term (current) drug therapy; Z88.8 Allergy status to other drugs, medicaments and biological substances; Z87.891 Personal history of nicotine dependence
CPT/HCPCS: 96361 ×2; 96374; 96375 ×2; 96376 ×2; 96372; J1170; J1885; J2060; J2270 ×3; J2405 ×3; J7030; J1650; J7120 ×2; 80048 ×2; 82553 ×3; 83036; 80061; 36415 ×6; 82550 ×3; 85025 ×2; 85730; 85610; 84484 ×4; 82150; 81001; 80076; 83690; 84443; 83880; 74019; 70450; 71275; 74177; 93880; 99285; 93005 ×5

== ENCOUNTER → 2018-08-16 | Outpatient (CLI) | payer OTHER ==
--- NOTE | 2018-08-16 10:23 | MRI ---
Study: MRI of the Left Knee. Indication: [id number] Technique: Multiplanar, multi sequence MRI of the left knee was obtained without intravenous contrast. Comparison: None. Findings: Mild to moderately motion degraded examination. ACL, PCL, and lateral collateral ligament complex intact. MCL is lax and bowed indicating sequela of a remote MCL sprain. No acute tear. Oblique undersurface tearing posterior horn and body medial meniscus with 2 mm extrusion of the body. Free edge fraying body lateral meniscus. Areas of grade 2 and 3 chondral thinning of the medial and lateral knee compartments noted. Patellofemoral extensor mechanism intact. Low-grade tendinosis quadriceps insertion. Patellar tendon intact. Patella normally located. Patchy areas of grade 2 and 3 chondrosis throughout the patella, most pronounced centrally. Small knee effusion. No acute fracture. Impression: Mild to moderately motion degraded examination. Oblique undersurface tear posterior horn and body medial meniscus. Subtle free edge fraying body lateral meniscus. Tricompartmental areas of grade 2 and 3 chondrosis. Small knee effusion. Electronically signed by: Manuel Larios MD 08/16/2018 10:22 AM [facility]
== END ==
LOC: MRI 06:45
PROVIDERS: ATTEND Orthopaedic Surgery Sports Medicine
DX: S83.242A Other tear of medial meniscus, current injury, left knee, initial encounter (principal); M94.262 Chondromalacia, left knee; M25.462 Effusion, left knee

== ENCOUNTER → 2018-08-17 | Outpatient (CLI) | payer OTHER ==
--- NOTE | 2018-08-17 13:40 | RAD ---
EXAM DESCRIPTION: Chest,2 Views CLINICAL HISTORY: 57 years Female, SHORTNESS OF BREATH COMPARISON: 03/03/2018 IMPRESSION: Heart size and pulmonary vascularity are within normal limits. Mild calcific plaque in the thoracic aorta. Subtle mild subsegmental opacities in the right lower lung zone which may represent atelectasis versus developing pneumonia. Follow-up to confirm resolution recommended. No confluent airspace consolidation, pleural effusion, or pneumothorax. No acute osseous abnormality. Electronically signed by: Satinder Bazan MD 08/17/2018 1:38 PM [facility]
== END ==
LOC: LAB.O 13:07
PROVIDERS: ATTEND Nurse Practitioner Family
DX: R06.02 Shortness of breath (principal); R73.09 Other abnormal glucose

== ENCOUNTER 2018-11-15 23:07 | Emergency (ER) | payer OTHER ==
[2018-11-15 23:30] VITALS: TEMP 99.2
[2018-11-15] MEDS ORDERED: ONDANSETRON ODT 8 MG TAB SL ONE (23:31)
[2018-11-15] MEDS ORDERED: SODIUM CHLORIDE 0.9% 1000ML 1,000 ML IVS ONE (23:31)
[2018-11-15] MEDS ORDERED: KETOROLAC TROMETHAMINE INJ 30 MG/ML VIAL IV ONE (23:32)
[2018-11-15] MEDS ORDERED: diazePAM 2 MG TAB PO ONE (23:33)
--- NOTE | 2018-11-15 23:48 | RAD ---
EXAM DESCRIPTION: KUB CLINICAL HISTORY: r flank pain, headache COMPARISON: 06/07/2018 FINDINGS: Bowel: No dilated loops of large or small bowel. Peritoneum: No free intraperitoneal air identified. Solid organs: No definite organomegaly. Calcifications: No abnormal calcifications. Bones: No acute osseous abnormalities. Other:Prior cholecystectomy. Large body habitus. IMPRESSION: Nonobstructive bowel gas pattern. Electronically signed by: Clay Chang 11/15/2018 11:46 PM CDT
[2018-11-16] MEDS ORDERED: POTASSIUM CHLORIDE ELIXIR 20 MEQ/15 ML UD PO ONE (00:20)
[2018-11-16 00:42] VITALS: O2SAT 98
--- NOTE | 2018-11-16 00:45 | ED.PDOC ---
History of Present Illness - General Chief Complaint: General Stated Complaint: body aches, fever, headache, Time Seen by Provider: 11/15/18 23:16 Source: patient Exam Limitations: no limitations - History of Present Illness Initial Comments: The patient is a 58-year-old female presenting to the emergency room secondary to right flank pain that has been getting worse all day. Additionally she does have a headache. She admits she is a little dehydrated. No fever. No urinary symptoms. She has had some mild nausea with the headache. She has had some mild intermittent diarrhea as well. No syncope or near syncope. The patient has tenderness to palpation over the paraspinal musculature which is obviously in spasm adjacent to L1-L3 on the right. She has diffuse discomfort to palpation of her scalp Timing/Duration: 24 hours Severity: moderate Improving Factors: nothing Worsening Factors: nothing Associated Symptoms: headaches, nausea/vomiting Allergies/Adverse Reactions: Allergies Promethazine [From Phenergan] Adverse Reaction (Verified 06/06/18 12:57) Home Medications: Ambulatory Orders Hydroxyzine HCl 50 mg PO BEDTIME 06/06/18 Losartan Potassium & Hydrochlo [Losartan Potassium/Hydroc 50-12.5 mg] 1 tab PO DAILY 06/06/18 Magnesium Hydroxide [Milk Of Magnesia] 30 ml PO DAILY PRN #1 bottle 06/07/18 Nitroglycerin 0.4 mg Tab [Nitrostat] 1 ea SL .Q5M PRN #1 bttl 06/07/18 Ondansetron [Ondansetron Odt] 4 mg PO Q4HR PRN #10 tab 06/07/18 Peg 6070-[id number]-Wrx Bicarb-Sod Ch [Golytely] 4,000 ml PO ONCE #1 liane 06/07/18 Polyethylene Glycol 3350 [Miralax] 17 gm PO DAILY 20 Days #20 pckt 06/07/18 Potassium Chloride [Potassium Chloride ER] 10 meq PO DAILY #30 cap 11/16/18 Review of Systems - Review of Systems Constitutional: States: no symptoms reported EENTM: States: no symptoms reported Respiratory: States: no symptoms reported Cardiology: States: no symptoms reported Gastrointestinal/Abdominal: States: diarrhea Genitourinary: States: no symptoms reported Musculoskeletal: States: back pain Skin: States: no symptoms reported Neurological: States: headache, other - no nuchal rigidity or meningeal signs. Endocrine: States: no symptoms reported All other Systems: No Change from Baseline Past Medical History (General) - Patient Medical History Hx Seizures: No Hx Stroke: No Hx Dementia: No Hx Asthma: No Hx of COPD: No Hx Cardiac Disorders: Yes - hx of small DE Hx Congestive Heart Failure: No Hx Pacemaker: No Hx Hypertension: Yes Hx Thyroid Disease: No Hx Diabetes: No Hx Gastroesophageal Reflux: Yes Hx Renal Disease: No Hx Cancer: No Hx of HIV: No Hx Hepatitis C: No Hx MRSA: Yes - left knee MRSA Source:: L knee sx Surgical History: Hysterectomy, other - Vaccination History Hx Tetanus, Diphtheria Vaccination: No Hx Influenza Vaccination: No Hx Pneumococcal Vaccination: No Immunizations Up to Date: Yes - Social History Hx Tobacco Use: No Hx Chewing Tobacco Use: No Hx Alcohol Use: No Hx Substance Use: No Hx Substance Use Treatment: No Hx Depression: No Feels Threatened In Home Enviroment: No Feels Threatened In a Relationship: No Hx Physical Abuse: No Hx Emotional Abuse: No Hx Suspected Abuse: No - Activities of Daily Living Hospice Agency (if applicable):: None - Female History Patient is a Female of Child Bearing Age (10 -59 yrs old): No Patient : No Family Medical History - Family History Mother Family History: No Known Living Status: Unknown Physical Exam - Physical Exam General Appearance: Alert, No apparent distress Eye Exam: bilateral normal Ears, Nose, Throat: hearing grossly normal, normal ENT inspection Neck: full range of motion, supple Respiratory: lungs clear, normal breath sounds, no respiratory distress, no accessory muscle use Cardiovascular/Chest: normal peripheral pulses, regular rate, rhythm, no edema Peripheral Pulses: radial,right: 2+, radial,left: 2+ Gastrointestinal/Abdominal: non tender, soft Rectal Exam: deferred Back Exam: CVA tenderness (R), muscle spasm Extremity: normal range of motion, non-tender, normal inspection, no pedal edema, normal capillary refill Neurologic: insurance sales specialist II-XII nml as tested, alert, normal mood/affect, oriented x 3 Skin Exam: normal color Comments: Vital Signs - 24 hr 11/15/18 11/16/18 23:13 00:07 Temperature 99.2 F Pulse Rate [ 82 79 PULSE OX] Respiratory 20 18 Rate Blood Pressure 130/66 [Left Arm] O2 Sat by Pulse 96 98 Oximetry Progress - Progress Progress: 11/16/18 00:46 the patient is 58-year-old female presenting to emergency room secondary to right paraspinal muscle spasms in the lumbar spine and a headache. She is found to have hypokalemia and dehydration as the most likely source. She'll be written for supplemental potassium for the next month. She needs to increase her fluid intake. She needs to do stretching exercises for her back. She needs to follow up with her primary care doctor within the coming week. ER warnings were given for any significant worsening. She received a dose of potassium here in the liter of IV fluids. - Results/Orders Results/Orders: KUB shows no free air or obstruction. Laboratory Results - last 24 hr 11/15/18 11/15/18 11/15/18 23:30 23:30 23:30 WBC 8.4 RBC 4.61 Hgb 13.7 Hct 40.5 MCV 87.9 MCH 29.8 MCHC 33.9 RDW 13.1 Plt Count 303 MPV 7.2 L Absolute Neuts (auto) 4.50 Absolute Lymphs (auto) 2.90 Absolute Monos (auto) 0.70 Absolute Eos (auto) 0.20 Absolute Basos (auto) 0.10 Neutrophils % 53.7 Lymphocytes % 34.1 Monocytes % 8.8 Eosinophils % 2.7 Basophils % 0.7 Sodium 141 Potassium 3.2 L Chloride 109 Carbon Dioxide 23 Anion Gap 12.2 BUN 22 H Creatinine 0.95 BUN/Creatinine Ratio 23.2 H Random Glucose 136 H Serum Osmolality 286.7 Lactic Acid 1.6 Calcium 9.0 Magnesium 1.8 Total Bilirubin 0.4 AST 19 ALT 15 Alkaline Phosphatase 75 Serum Total Protein 6.7 Albumin 3.6 Globulin 3.1 Albumin/Globulin Ratio 1.2 Amylase 47 Lipase 41 Urine Color Urine Appearance Urine pH Ur Specific Goehner Urine Protein Urine Glucose (UA) Urine Ketones Urine Blood Urine Nitrite Urine Bilirubin Urine Urobilinogen Ur Leukocyte Esterase Urine RBC Urine WBC Ur Epithelial Cells Urine Bacteria 11/15/18 23:30 WBC RBC Hgb Hct MCV MCH MCHC RDW Plt Count MPV Absolute Neuts (auto) Absolute Lymphs (auto) Absolute Monos (auto) Absolute Eos (auto) Absolute Basos (auto) Neutrophils % Lymphocytes % Monocytes % Eosinophils % Basophils % Sodium Potassium Chloride Carbon Dioxide Anion Gap BUN Creatinine BUN/Creatinine Ratio Random Glucose Serum Osmolality Lactic Acid Calcium Magnesium Total Bilirubin AST ALT Alkaline Phosphatase Serum Total Protein Albumin Globulin Albumin/Globulin Ratio Amylase Lipase Urine Color Yellow Urine Appearance Clear Urine pH 5.5 Ur Specific Goehner >= 1.030 Urine Protein Negative Urine Glucose (UA) Negative Urine Ketones Negative Urine Blood Negative Urine Nitrite Negative Urine Bilirubin Negative Urine Urobilinogen 0.2 Ur Leukocyte Esterase Negative Urine RBC 0 Urine WBC 0 Ur Epithelial Cells 1-3 Urine Bacteria 0 Departure - Departure Clinical Impression: Dehydration, Hypokalemia Headache Qualifiers: Headache type: tension-type Headache chronicity pattern: acute headache Intractability: not intractable Qualified Code(s): G44.209 - Tension-type headache, unspecified, not intractable Disposition: Discharge to Home or Self Care Condition: Fair Departure Forms: ED Discharge - Pt. Copy, Patient Portal Self Enrollment Instructions: Dehydration, Adult (DC), Hypokalemia (DC) Diet: regular diet Activity: increase activity as tolerated Referrals: Ashia Mishra, [employer]ARY L[employer]GRAPHIC PRESS OPERATOR [Primary Care Provider] - 1-2 Weeks Prescriptions: Potassium Chloride [Potassium Chloride ER] 10 meq PO DAILY #30 cap Home Medications: Ambulatory Orders Hydroxyzine HCl 50 mg PO BEDTIME 06/06/18 Losartan Potassium & Hydrochlo [Losartan Potassium/Hydroc 50-12.5 mg] 1 tab PO DAILY 06/06/18 Magnesium Hydroxide [Milk Of Magnesia] 30 ml PO DAILY PRN #1 bottle 06/07/18 Nitroglycerin 0.4 mg Tab [Nitrostat] 1 ea SL .Q5M PRN #1 bttl 06/07/18 Ondansetron [Ondansetron Odt] 4 mg PO Q4HR PRN #10 tab 06/07/18 Peg 6765-ARl-Qcy Bicarb-Sod Ch [Golytely] 4,000 ml PO ONCE #1 liane 06/07/18 Polyethylene Glycol 3350 [Miralax] 17 gm PO DAILY 20 Days #20 pckt 06/07/18 Potassium Chloride [Potassium Chloride ER] 10 meq PO DAILY #30 cap 11/16/18 Additional Instructions: the patient is 58-year-old female presenting to emergency room secondary to right paraspinal muscle spasms in the lumbar spine and a headache. She is found to have hypokalemia and dehydration as the most likely source. She'll be written for supplemental potassium for the next month. She needs to increase her fluid intake. She needs to do stretching exercises for her back. She needs to follow up with her primary care doctor within the coming week. ER warnings were given for any significant worsening. She received a dose of potassium here in the liter of IV fluids.
[2018-11-16 00:51] VITALS: BP 105/55
== END 2018-11-16 01:00 | disposition home or self-care (01) ==
LOC: ER 23:07
DX: G44.209 Tension-type headache, unspecified, not intractable (principal); E86.0 Dehydration; E87.6 Hypokalemia; M54.5 Low back pain; R10.9 Unspecified abdominal pain; R11.0 Nausea; R19.7 Diarrhea, unspecified; I25.2 Old myocardial infarction; I10 Essential (primary) hypertension; K21.9 Gastro-esophageal reflux disease without esophagitis; Z79.899 Other long term (current) drug therapy; Z88.8 Allergy status to other drugs, medicaments and biological substances
CPT/HCPCS: 36415; 74018; 80053; 81001; 82150; 83605; 83690; 83735; 85025; 87502; J1885; J7030

== ENCOUNTER → 2018-11-28 | Outpatient (CLI) | payer OTHER | LOC: GMAM 14:12 | PROVIDERS: ATTEND Family Medicine | DX: R53.83 Other fatigue (principal); E53.8 Deficiency of other specified B group vitamins; E55.9 Vitamin D deficiency, unspecified ==

== ENCOUNTER 2018-12-22 09:18 | Emergency (ER) | payer OTHER ==
[2018-12-22] MEDS ORDERED: ONDANSETRON INJ 4 MG/2 ML VIAL IV ONE (09:49)
[2018-12-22] MEDS ORDERED: SUMAtriptan SUCCINATE INJ 6 MG/0.5 ML VIAL SUBCU ONE (09:49)
[2018-12-22] MEDS ORDERED: SODIUM CHLORIDE 0.9% 1000ML 1,000 ML IVS ONE (09:49)
--- NOTE | 2018-12-22 10:00 | ED.PDOC ---
History of Present Illness - General Chief Complaint: Headache Stated Complaint: headache x 3 days Time Seen by Provider: 12/22/18 09:47 Source: patient Exam Limitations: no limitations - History of Present Illness Initial Comments: patient comes in today with 3-4 day history of severe right sided headache. Patient states it's throbbing it feels like it's behind her eye and associated with photo and phonophobia. Patient is also having some nausea but no emesis. She has not had a severe headache like this she said in probably 20 years. Additionally patient states she has tried Excedrin Migraine and Ultram at home with no improvement. The pain has persisted and last dose was at midnight. Patient denies any nasal congestion, sinus pressure, headache, cough or cold sym ptoms. She has been dealing with severe right sided flank pain for the past several weeks and had a CAT scan done today to try to check on her kidneys. Patient does state that her urinalysis and blood work has thus far been normal. Last blood work was performed on Tuesday. Patient has a past medical history of hypertension but no other medical problems. She has no known drug allergies. Timing/Duration: constant, other - 3 days Quality: severe, throbbing Head Injury Location: frontal - behind right eye Recent Head Trauma: no recent headache/trauma, occasional headaches Improving Factors: nothing, other - tried Ultram and Excedrin Migraine at home with last dose at midnight Worsening Factors: other - bright lights and loud sounds Associated Symptoms: nausea/vomiting Allergies/Adverse Reactions: Allergies NO KNOWN ALLERGY Allergy (Verified 12/22/18 09:52) Home Medications: Ambulatory Orders Losartan Potassium & Hydrochlo [Losartan Potassium/Hydroc 50-12.5 mg] 1 tab PO DAILY 06/06/18 Ondansetron Odt [Zofran ODT] 8 mg PO Q6HRS PRN #10 tab 12/22/18 Sumatriptan Succinate [Imitrex] 50 mg PO DAILY PRN 30 Days #9 tab 12/22/18 Review of Systems - Review of Systems Constitutional: States: no symptoms reported. Denies: chills, fever EENTM: States: see HPI. Denies: blurred vision, double vision, ear discharge, nose congestion, throat pain Respiratory: States: no symptoms reported. Denies: cough, short of breath, wheezing Cardiology: States: no symptoms reported. Denies: chest pain, edema, palpitations, syncope Gastrointestinal/Abdominal: States: no symptoms reported. Denies: abdominal pain, constipation, diarrhea, nausea, vomiting Genitourinary: States: no symptoms reported. Denies: discharge, dysuria, frequency Musculoskeletal: States: no symptoms reported. Denies: back pain, neck pain Skin: States: no symptoms reported Neurological: States: headache. Denies: numbness, paresthesia, pre-existing deficit Endocrine: States: no symptoms reported Past Medical History (General) - Patient Medical History Hx Seizures: No Hx Stroke: No Hx Dementia: No Hx Asthma: No Hx of COPD: No Hx Cardiac Disorders: No Hx Congestive Heart Failure: No Hx Pacemaker: No Hx Hypertension: Yes Hx Thyroid Disease: No Hx Diabetes: No Hx Gastroesophageal Reflux: Yes Hx Renal Disease: No Hx Cancer: No Hx of HIV: No Hx Hepatitis C: No Hx MRSA: Yes - left knee MRSA Source:: L knee sx Surgical History: cholecystectomy, colectomy, Hysterectomy, other - Vaccination History Hx Tetanus, Diphtheria Vaccination: No Hx Influenza Vaccination: No Hx Pneumococcal Vaccination: No - Social History Hx Tobacco Use: Yes Hx Chewing Tobacco Use: No Hx Alcohol Use: Yes Hx Substance Use: No Hx Substance Use Treatment: No Hx Depression: No Hx Physical Abuse: No Hx Emotional Abuse: No Hx Suspected Abuse: No - Female History Patient is a Female of Child Bearing Age (10 -59 yrs old): No Patient : No Family Medical History - Family History Mother Family History: No Known Living Status: Unknown Physical Exam - Physical Exam General Appearance: Alert, Other - lying on her side with sunglasses holding her head and in a dark room Eyes, Ears, Nose, Throat Exam: PERRL/EOMI, normal ENT inspection, TMs normal, pharynx normal Neck: non-tender, full range of motion, supple, normal inspection, trachea midline Cardiovascular/Chest: normal peripheral pulses, regular rate, rhythm, no edema, no gallop, no JVD, no murmur Respiratory: chest non-tender, lungs clear, normal breath sounds, no respiratory distress Gastrointestinal/Abdominal: normal bowel sounds, non tender, soft Back Exam: normal inspection, no vertebral tenderness, other - tenderness to right flank with no bruising and no midline tenderness Extremity: normal range of motion, non-tender 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 will send her home with prn zofran and imitrex should she get another migraine headache - Results/Orders Results/Orders: Laboratory Results WBC 5.2 K/mm3 (4.8-10.8) 12/22/18 09:59 RBC 4.93 M/mm3 (4.20-5.40) 12/22/18 09:59 Hgb 14.8 gm/dL (12.0-16.0) 12/22/18 09:59 Hct 43.8 % (36.0-47.0) 12/22/18 09:59 MCV 88.9 fl (81.0-99.0) 12/22/18 09:59 MCH 30.0 pg (27.0-31.0) 12/22/18 09:59 MCHC 33.7 g/dL (33.0-37.0) 12/22/18 09:59 RDW 13.4 % (11.5-14.5) 12/22/18 09:59 Plt Count 276 K/mm3 (130-400) 12/22/18 09:59 MPV 6.7 fl (7.40-10.4) L 12/22/18 09:59 Absolute Neuts (auto) 2.50 K/uL (1.8-6.8) 12/22/18 09:59 Absolute Lymphs (auto) 2.10 K/uL (1.0-3.4) 12/22/18 09:59 Absolute Monos (auto) 0.50 K/uL (0.2-0.8) 12/22/18 09:59 Absolute Eos (auto) 0.10 K/uL (0.0-0.4) 12/22/18 09:59 Absolute Basos (auto) 0.00 K/uL (0.0-0.1) 12/22/18 09:59 Neutrophils % 47.5 % (42.0-78.0) 12/22/18 09:59 Lymphocytes % 39.6 % (20.0-50.0) 12/22/18 09:59 Monocytes % 9.7 % (2.0-9.0) H 12/22/18 09:59 Eosinophils % 2.7 % (1.0-5.0) 12/22/18 09:59 Basophils % 0.5 % (0.0-2.0) 12/22/18 09:59 Sodium 137 mmol/L (135-145) 12/22/18 09:59 Potassium 3.8 mmol/L (3.6-5.0) 12/22/18 09:59 Chloride 100 mmol/L (101-111) L 12/22/18 09:59 Carbon Dioxide 28 mmol/L (21-31) 12/22/18 09:59 Anion Gap 12.8 (12-18) 12/22/18 09:59 BUN 14 mg/dL (7-18) 12/22/18 09:59 Creatinine 0.75 mg/dL (0.6-1.3) 12/22/18 09:59 BUN/Creatinine Ratio 18.7 (10-20) 12/22/18 09:59 Random Glucose 113 mg/dL (70-105) H 12/22/18 09:59 Serum Osmolality 275.1 mOsm/L (275-295) 12/22/18 09:59 Calcium 9.2 mg/dL (8.4-10.2) 12/22/18 09:59 Total Bilirubin 0.7 mg/dL (0.2-1.0) 12/22/18 09:59 AST 29 IU/L (10-42) 12/22/18 09:59 ALT 31 IU/L (10-60) 12/22/18 09:59 Alkaline Phosphatase 92 IU/L (42-121) 12/22/18 09:59 Serum Total Protein 6.9 gm/dL (6.4-8.2) 12/22/18 09:59 Albumin 3.8 g/dl (3.2-5.5) 12/22/18 09:59 Globulin 3.1 gm/dL (2.3-3.5) 12/22/18 09:59 Albumin/Globulin Ratio 1.2 (1.1-1.9) 12/22/18 09:59 Departure - Departure Clinical Impression: Migraine Qualifiers: Migraine type: without aura Status migrainosus presence: without status migrainosus Intractability: not intractable Qualified Code(s): G43.009 - Migraine without aura, not intractable, without status migrainosus Disposition: Discharge to Home or Self Care Departure Forms: ED Discharge - Pt. Copy, Patient Portal Self Enrollment Instructions: DI for Headache Referrals: Jn Calvin MD [Primary Care Provider] - 1-2 Weeks Prescriptions: Ondansetron Odt [Zofran ODT] 8 mg PO Q6HRS PRN #10 tab PRN Reason: Nausea Sumatriptan Succinate [Imitrex] 50 mg PO DAILY PRN 30 Days #9 tab PRN Reason: Headache Or Mild Pain Home Medications: Ambulatory Orders Losartan Potassium & Hydrochlo [Losartan Potassium/Hydroc 50-12.5 mg] 1 tab PO DAILY 06/06/18 Ondansetron Odt [Zofran ODT] 8 mg PO Q6HRS PRN #10 tab 12/22/18 Sumatriptan Succinate [Imitrex] 50 mg PO DAILY PRN 30 Days #9 tab 12/22/18 Additional Instructions: return to ER for severe pain, vision change, intractable emesis. follow up with PCP in 3-4 days
[2018-12-22 10:32] VITALS: O2SAT 92
[2018-12-22 11:07] VITALS: BP 115/67
[2018-12-22 11:21] VITALS: TEMP 97.8
== END 2018-12-22 11:15 | disposition home or self-care (01) ==
LOC: ER 09:18 → SUPCPDRO 09:18 → ER 11:15
DX: G43.009 Migraine without aura, not intractable, without status migrainosus (principal); I10 Essential (primary) hypertension; K21.9 Gastro-esophageal reflux disease without esophagitis; Z87.891 Personal history of nicotine dependence
CPT/HCPCS: 36415; 80053; 85025; J2405; J3030; J7030

== ENCOUNTER → 2018-12-22 | Outpatient (CLI) | payer OTHER ==
--- NOTE | 2018-12-22 09:45 | CT ---
EXAM DESCRIPTION: Abdomen/Pelvis w/wo Contrast CLINICAL HISTORY: FLANK PAIN COMPARISON: 06/06/2018 TECHNIQUE: CT of the abdomen and pelvis was performed before and after intravenous contrast. Multiple axial images and multiplanar reconstructions were generated. This exam was performed according to our departmental dose-optimization program, which includes automated exposure control, adjustment of the mA and/or kV according to patient size and/or use of iterative reconstruction technique. FINDINGS: Lung bases: The visualized lung bases are clear. Solid organs: Cholecystectomy clips. No hydronephrosis or hydroureter. The liver, spleen, pancreas, kidneys, and adrenal glands are unremarkable. Tiny left renal cyst. Gastrointestinal: Operative changes of the rectosigmoid colon. Colonic diverticulosis without CT evidence for diverticulitis. The appendix is not definitely seen, but there is no pericecal inflammation. Small hiatal hernia. 2 duodenal diverticula are present. No free fluid or free air. Vascular: Moderate atherosclerotic plaque in the abdominal aorta and its major branches. Lymph nodes: No pathologically enlarged lymph nodes are present by CT size criteria. Musculoskeletal and soft tissues: No destructive osseous lesions are present. Small fat-containing umbilical hernia. Urinary bladder and pelvic organs: The urinary bladder is normal. The uterus is absent. IMPRESSION: 1. No acute abdominal or pelvic CT findings. 2. Colonic diverticulosis without CT evidence for diverticulitis. 3. Moderate atherosclerosis. 4. Other findings as above. Electronically signed by: Satinder Bazan MD 12/22/2018 9:42 AM CDT
== END ==
LOC: CT 08:30
PROVIDERS: ATTEND Family Medicine
DX: K57.30 Diverticulosis of large intestine without perforation or abscess without bleeding (principal); I70.90 Unspecified atherosclerosis

== ENCOUNTER 2018-12-23 12:11 | Emergency (ER) | payer OTHER ==
[2018-12-23 12:31] VITALS: O2SAT 95
[2018-12-23] MEDS ORDERED: PROMETHAZINE HCL INJ 25 MG/ML VIAL IM ONE (12:40)
[2018-12-23] MEDS ORDERED: diazePAM 2 MG TAB PO ONE (12:40)
[2018-12-23] MEDS ORDERED: cefTRIAXone SODIUM 1 GM VIAL IM ONE (12:40)
[2018-12-23] MEDS ORDERED: KETOROLAC TROMETHAMINE INJ 30 MG/ML VIAL IM ONE (12:40)
--- NOTE | 2018-12-23 13:23 | ED.PDOC ---
History of Present Illness - General Chief Complaint: Headache Stated Complaint: Recurrent migraine Time Seen by Provider: 12/23/18 12:21 Source: patient Exam Limitations: no limitations - History of Present Illness Initial Comments: the patient is a 58-year-old female presenting to the emergency room secondary to a persistent headache over the last 3-4 days. This seems to likely started as a sinus headache with pressure on the left maxillary sinus. The patient has had a head CT within the last year that was essentially within normal limits. No altered mental status. No fever. She does get some nausea when she gets her headaches normally. She did try the Imitrex which did not really help. She does take Zofran to control nausea. She is not diabetic. She did receive a steroid shot with her primary care doctor 3 days ago. She was also put on Augmentin at that time but did not take it due to it causing some stomach upset. She was written for Bactrim which she just started this morning. No nuchal rigidity. No altered mental status. No focal neurological changes. No trauma. No strong blood thinners.the patient has had a history of tension he adaches and migraine headaches in the past. Again she did have a head CT herein May 2018. Timing/Duration: other - 4 days Severity: moderate Improving Factors: nothing Worsening Factors: nothing Associated Symptoms: headaches Allergies/Adverse Reactions: Allergies NO KNOWN ALLERGY Allergy (Verified 12/23/18 12:31) Home Medications: Ambulatory Orders Losartan Potassium & Hydrochlo [Losartan Potassium/Hydroc 50-12.5 mg] 1 tab PO DAILY 06/06/18 Ondansetron Odt [Zofran ODT] 8 mg PO Q6HRS PRN #10 tab 12/22/18 Sumatriptan Succinate [Imitrex] 50 mg PO DAILY PRN 30 Days #9 tab 12/22/18 Cyclobenzaprine HCl [Flexeril] 10 mg PO TID PRN #20 tab 12/23/18 Review of Systems - Review of Systems Constitutional: States: malaise EENTM: States: see HPI Respiratory: States: no symptoms reported Cardiology: States: no symptoms reported Gastrointestinal/Abdominal: States: no symptoms reported Genitourinary: States: no symptoms reported Musculoskeletal: States: no symptoms reported Skin: States: no symptoms reported Neurological: States: headache Endocrine: States: no symptoms reported All other Systems: No Change from Baseline Past Medical History (General) - Patient Medical History Hx Seizures: No Hx Stroke: No Hx Dementia: No Hx Asthma: No Hx of COPD: No Hx Cardiac Disorders: No Hx Congestive Heart Failure: No Hx Pacemaker: No Hx Hypertension: Yes Hx Thyroid Disease: No Hx Diabetes: No Hx Gastroesophageal Reflux: Yes Hx Renal Disease: No Hx Cancer: No Hx of HIV: No Hx Hepatitis C: No Hx MRSA: Yes - left knee MRSA Source:: L knee sx Surgical History: cholecystectomy, Hysterectomy, other - Vaccination History Hx Tetanus, Diphtheria Vaccination: No Hx Influenza Vaccination: No Hx Pneumococcal Vaccination: No - Social History Hx Tobacco Use: Yes Hx Chewing Tobacco Use: No Hx Alcohol Use: Yes Hx Substance Use: No Hx Substance Use Treatment: No Hx Depression: No Hx Physical Abuse: No Hx Emotional Abuse: No Hx Suspected Abuse: No - Female History Patient is a Female of Child Bearing Age (10 -59 yrs old): No Patient : No Family Medical History - Family History Mother Family History: No Known Living Status: Unknown Physical Exam - Physical Exam General Appearance: Alert, No apparent distress Eye Exam: bilateral normal Ears, Nose, Throat: hearing grossly normal, normal pharynx, other - left maxillary sinus pressure Neck: full range of motion, supple Respiratory: lungs clear, normal breath sounds, no respiratory distress, no accessory muscle use Cardiovascular/Chest: normal peripheral pulses, regular rate, rhythm, no edema Peripheral Pulses: radial,right: 2+, radial,left: 2+ Gastrointestinal/Abdominal: non tender, soft Rectal Exam: deferred Back Exam: no CVA tenderness, no vertebral tenderness Extremity: non-tender, normal inspection, no pedal edema, normal capillary refill 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 It is likely triggered by left maxillary sinusitis given her symptoms. She needs to complete her course of antibiotics that she just started this morning. She has already received one dose of steroids with her primary care doctor earlier this week. She can case picker [id number] Flonase or Rhinocort and use that twice daily to help open up the maxillary sinus. She needs to keep herself well hydrated in order to prevent dehydration from contributing to the headache. She has had a head CT about 7 months ago that was essentially within normal limits, due to a similar headache at that time. the patient also had fairly extensive laboratory work here 2 days ago that were essentially within normal limits. She can use her Zofran as needed for nausea. She needs to follow back up with her primary care doctor early this coming week. She has received medications for the headache here today. She will be written for some Flexeril to use over the next few days to help reduce symptoms. She can use Motrin or Aleve as well as an anti- inflammatory during that time. ER warnings were given. 12/23/18 13:26 Departure - Departure Clinical Impression: Tension headache Maxillary sinusitis, acute Qualifiers: Recurrence: non-recurrent Qualified Code(s): J01.00 - Acute maxillary sinusitis, unspecified Disposition: Discharge to Home or Self Care Departure Forms: ED Discharge - Pt. Copy, Patient Portal Self Enrollment Referrals: Ashia Mishra NP [Primary Care Provider] - 1-2 Weeks Prescriptions: Cyclobenzaprine HCl [Flexeril] 10 mg PO TID PRN #20 tab PRN Reason: Muscle Spasms Home Medications: Ambulatory Orders Losartan Potassium & Hydrochlo [Losartan Potassium/Hydroc 50-12.5 mg] 1 tab PO DAILY 06/06/18 Ondansetron Odt [Zofran ODT] 8 mg PO Q6HRS PRN #10 tab 12/22/18 Sumatriptan Succinate [Imitrex] 50 mg PO DAILY PRN 30 Days #9 tab 12/22/18 Cyclobenzaprine HCl [Flexeril] 10 mg PO TID PRN #20 tab 12/23/18 Additional Instructions: the patient's 58-year-old female presenting with a persistent headache that is most likely tension headache. It is likely triggered by left maxillary sinusitis given her symptoms. She needs to complete her course of antibiotics that she just started this morning. She has already received one dose of steroids with her primary care doctor earlier this week. She can case picker [id number] Flonase or Rhinocort and use that twice daily to help open up the maxillary sinus. She needs to keep herself well hydrated in order to prevent dehydration from contributing to the headache. She has had a head CT about 7 months ago that was essentially within normal limits, due to a similar headache at that time. the patient also had fairly extensive laboratory work here 2 days ago that were essentially within normal limits. She can use her Zofran as needed for nausea. She needs to follow back up with her primary care doctor early this coming week. She has received medications for the headache here today. She will be written for some Flexeril to use over the next few days to help reduce symptoms. She can use Motrin or Aleve as well as an anti- inflammatory during that time. ER warnings were given.
[2018-12-23 14:06] VITALS: BP 140/71
[2018-12-23 14:07] VITALS: TEMP 98.3
== END 2018-12-23 14:00 | disposition home or self-care (01) ==
LOC: ER 12:11
DX: J01.00 Acute maxillary sinusitis, unspecified (principal); G44.209 Tension-type headache, unspecified, not intractable; I10 Essential (primary) hypertension; K21.9 Gastro-esophageal reflux disease without esophagitis; Z87.891 Personal history of nicotine dependence; Z79.899 Other long term (current) drug therapy
CPT/HCPCS: J0696; J1885; J2550

== ENCOUNTER → 2019-01-10 | Outpatient (CLI) | payer OTHER | LOC: LAB.O 16:49 | PROVIDERS: ATTEND Orthopaedic Surgery Adult Reconstructive Orthopaedic Surgery | DX: Z01.818 Encounter for other preprocedural examination (principal); M84.362G Stress fracture, left tibia, subsequent encounter for fracture with delayed healing ==

== ENCOUNTER → 2019-02-07 | Outpatient (CLI) | payer OTHER | LOC: LAB.O 12:53 | PROVIDERS: ATTEND Orthopaedic Surgery Adult Reconstructive Orthopaedic Surgery | DX: M84.362G Stress fracture, left tibia, subsequent encounter for fracture with delayed healing (principal) ==

== ENCOUNTER 2019-02-25 22:41 | Emergency (ER) | payer OTHER ==
[2019-02-25 22:58] VITALS: TEMP 98.9
[2019-02-25] MEDS ORDERED: IBUPROFEN 200 MG TAB PO ONE (23:04)
[2019-02-25] MEDS ORDERED: prednisoLONE 15 MG/5 ML 5 ML UD PO ONE (23:04)
[2019-02-25] MEDS ORDERED: HYDROcodone 7.5MG/APAP 325MG 1 EA TAB PO ONE (23:04)
--- NOTE | 2019-02-25 23:35 | RAD ---
EXAM DESCRIPTION: AP view of the chest CLINICAL HISTORY:58 years Female, chest pain Comparison: None FINDINGS: No focal lung consolidation. No pleural effusion. No pneumothorax. Cardiac and mediastinal silhouette is unremarkable. No acute osseous abnormality. Soft tissues are unremarkable. IMPRESSION: No acute findings. No focal lung consolidation. Electronically signed by: Kishore Pierce DO 02/25/2019 11:34 PM CDT
[2019-02-26] MEDS ORDERED: ONDANSETRON INJ 4 MG/2 ML VIAL IV ONE (00:20)
[2019-02-26] MEDS ORDERED: ONDANSETRON ODT 8 MG TAB SL ONE (00:25)
[2019-02-26 01:20] VITALS: O2SAT 95
--- NOTE | 2019-02-26 02:35 | ED.PDOC ---
History of Present Illness - General Chief Complaint: Chest Pain/CO Stated Complaint: CP onset 30 mins prior to arrival Time Seen by Provider: 02/25/19 22:43 Source: patient Exam Limitations: no limitations - History of Present Illness Initial Comments: the patient is a 58-year-old female presenting to the emergency room secondary to the development of acute sharp chest pain to the anterior left mid lower rib cage. Pain is worse with movement and deep breathing and is also worse with movement with point palpation. No shortness of breath. No syncope. No history of any coronary artery disease. Timing/Duration: 1 hour Severity: moderate Improving Factors: immobilization Worsening Factors: movement Associated Symptoms: denies symptoms Allergies/Adverse Reactions: Allergies NO KNOWN ALLERGY Allergy (Verified 02/25/19 22:58) Home Medications: Ambulatory Orders Losartan Potassium & Hydrochlo [Losartan Potassium/Hydroc 50-12.5 mg] 1 tab PO DAILY 06/06/18 Review of Systems - Review of Systems Constitutional: States: no symptoms reported EENTM: States: no symptoms reported Respiratory: States: no symptoms reported Cardiology: States: chest pain Gastrointestinal/Abdominal: States: no symptoms reported Genitourinary: States: no symptoms reported Musculoskeletal: States: no symptoms reported Skin: States: no symptoms reported Neurological: States: no symptoms reported Endocrine: States: no symptoms reported All other Systems: No Change from Baseline Past Medical History (General) - Patient Medical History Hx Seizures: No Hx Stroke: No Hx Dementia: No Hx Asthma: No Hx of COPD: No Hx Cardiac Disorders: No Hx Congestive Heart Failure: No Hx Pacemaker: No Hx Hypertension: Yes Hx Thyroid Disease: No Hx Diabetes: No Hx Gastroesophageal Reflux: Yes Hx Renal Disease: No Hx Cancer: No Hx of HIV: No Hx Hepatitis C: No Hx MRSA: Yes - left knee MRSA Source:: L knee sx Surgical History: cholecystectomy, tonsillectomy, Hysterectomy - Vaccination History Hx Tetanus, Diphtheria Vaccination: No Hx Influenza Vaccination: No Hx Pneumococcal Vaccination: No - Social History Hx Tobacco Use: Yes Hx Chewing Tobacco Use: No Hx Alcohol Use: Yes Hx Substance Use: No Hx Substance Use Treatment: No Hx Depression: No Hx Physical Abuse: No Hx Emotional Abuse: No Hx Suspected Abuse: No - Female History Patient : No Family Medical History - Family History Mother Family History: No Known Living Status: Unknown Physical Exam - Physical Exam General Appearance: Alert, Anxious, No apparent distress Eye Exam: bilateral normal Ears, Nose, Throat: hearing grossly normal, normal ENT inspection Neck: full range of motion, supple Respiratory: lungs clear, normal breath sounds, no respiratory distress, no accessory muscle use, other - see history of present illness Cardiovascular/Chest: normal peripheral pulses, regular rate, rhythm, no edema Peripheral Pulses: radial,right: 2+, radial,left: 2+ Gastrointestinal/Abdominal: non tender, soft Rectal Exam: deferred Back Exam: no CVA tenderness, no vertebral tenderness Extremity: normal range of motion, non-tender, normal inspection, no pedal edema, normal capillary refill 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, alert, normal mood/affect, oriented x 3 Skin Exam: normal color Comments: Vital Signs - 24 hr 02/25/19 02/25/19 02/25/19 22:43 23:20 23:38 Temperature 98.9 F Pulse Rate 76 Pulse Rate [ 83 76 76 monitor] Respiratory 18 16 Rate Blood Pressure 136/68 [Left Arm] O2 Sat by Pulse 97 Oximetry 02/25/19 02/26/19 02/26/19 23:57 00:00 01:00 Temperature Pulse Rate 76 71 Pulse Rate [ 76 71 76 monitor] Respiratory 16 16 16 Rate Blood Pressure 132/53 102/52 116/53 [Left Arm] O2 Sat by Pulse 95 96 95 Oximetry Progress - Progress Progress: 02/26/19 02:35 the patient is a 58-year-old female presenting to the emergency room with atypical chest pain that appears to be more consistent with an acute costochondritis. The patient can take an zlda-neu-iqlltxk anti-inflammatory such as Motrin or Aleve for this. 2 sets of cardiac enzymes are negative. Chest x-ray is reassuring. ER warnings were given for any significant changes. Follow-up with primary care doctor. - Results/Orders Results/Orders: 02/25/19 23:00 Telemetry .ONCE EKG Stat Pulse Ox Stat 02/25/19 23:01 Pulse Oximetry Assessment DAILY Laboratory Results - last 24 hr 02/25/19 02/25/19 02/26/19 23:00 23:01 02:00 WBC 8.7 RBC 4.88 Hgb 15.0 Hct 43.7 MCV 89.4 MCH 30.6 MCHC 34.3 RDW 13.1 Plt Count 311 MPV 7.6 Absolute Neuts (auto) 5.40 Absolute Lymphs (auto) 2.30 Absolute Monos (auto) 0.70 Absolute Eos (auto) 0.20 Absolute Basos (auto) 0.00 Neutrophils % 62.8 Lymphocytes % 26.9 Monocytes % 7.8 Eosinophils % 2.0 Basophils % 0.5 PT 9.0 INR 0.90 PTT (SP) 19.4 L D-Dimer, Quantitative 0.61 H* Sodium 140 Potassium 3.5 L Chloride 105 Carbon Dioxide 25 Anion Gap 13.5 BUN 16 Creatinine 0.79 BUN/Creatinine Ratio 20.3 H Random Glucose 133 H Serum Osmolality 282.5 Calcium 9.2 Magnesium 1.8 Total Bilirubin 0.3 Direct Bilirubin < 0.1 Indirect Bilirubin 0.2 AST 22 ALT 19 Alkaline Phosphatase 90 Creatine Kinase 45 48 CK-MB (CK-2) 0.8 0.7 CK-MB (CK-2) % Not Reportable Not Reportable Troponin I < 0.02 < 0.02 B-Natriuretic Peptide 29.1 Serum Total Protein 6.9 Albumin 3.6 chest x-ray appears benign. EKG is consistent with previous EKG from May 2018. There is very mild left axis deviation. Normal R-wave progression. No ST segment or T-wave changes indicative of ischemia. Borderline QT interval. Possibly very early right bundle branch block. - EKG/XRAY/CT CT Ordered: No Departure - Departure Clinical Impression: Acute costochondritis Disposition: Discharge to Home or Self Care Condition: Fair Departure Forms: ED Discharge - Pt. Copy, Patient Portal Self Enrollment Instructions: Costochondritis (DC) Diet: regular diet Activity: increase activity as tolerated Referrals: Ashia Mishra NP [Primary Care Provider] - 1-2 Weeks Home Medications: Ambulatory Orders Losartan Potassium & Hydrochlo [Losartan Potassium/Hydroc 50-12.5 mg] 1 tab PO DAILY 06/06/18 Additional Instructions: the patient is a 58-year-old female presenting to the emergency room with atypical chest pain that appears to be more consistent with an acute costochondritis. The patient can take an veyt-gki-oeoehmj anti-inflammatory such as Motrin or Aleve for this. 2 sets of cardiac enzymes are negative. Chest x-ray is reassuring. ER warnings were given for any significant changes. Follow-up with primary care doctor.
[2019-02-26 02:40] VITALS: BP 110/59
== END 2019-02-26 02:46 | disposition home or self-care (01) ==
LOC: ER 22:41
DX: M94.0 Chondrocostal junction syndrome [Tietze] (principal); I10 Essential (primary) hypertension; K21.9 Gastro-esophageal reflux disease without esophagitis; Z90.49 Acquired absence of other specified parts of digestive tract; Z87.891 Personal history of nicotine dependence; Z79.899 Other long term (current) drug therapy
CPT/HCPCS: 71045; 80048; 80076; 82550; 82553; 83880; 84484; 85025; 85379; 85610; 85730; 93005; J7510

== ENCOUNTER 2019-04-11 13:45 | Emergency (ER) | payer OTHER ==
[2019-04-11] MEDS ORDERED: KETOROLAC TROMETHAMINE INJ 60 MG/2 ML VIAL IM ONE (14:23)
[2019-04-11] MEDS: KETOROLAC TROMETHAMINE INJ 30 MG/ML VIAL IM ONE (14:25)
[2019-04-11] MEDS: HYDROcodone 7.5MG/APAP 325MG 1 EA TAB PO ONE (14:25)
[2019-04-11] MEDS: predniSONE 20 MG TAB PO ONE (14:25)
--- NOTE | 2019-04-11 14:53 | ED.PDOC ---
History of Present Illness - General Chief Complaint: Problem Stated Complaint: right sided flank/abd pain Time Seen by Provider: 04/11/19 13:47 Source: patient Exam Limitations: no limitations - History of Present Illness Initial Comments: the patient is a 58-year-old female presenting to emergency room secondary to recurrence of her right flank pain. According to our records she has had at least 3 separate episodes of right flank pain in the past year, possibly 4. It has been followed on several occasions of this may be due to kidney stones however CT scans have failed to confirm that. In fact on reviewing her last CT scan from a few months ago I do not see any kidney stones up in that kidney. No recent trauma. This episode of right flank pain started about a week ago and has gotten progressively worse. It is worse with movement. It is worse with palpation. It is adjacent to L1 on the right. No spinous process tenderness to palpation. No obvious trauma. It is a sharp stabbing pain when it hits at its worst with a dull ache rest of the time. No bruising. No palpable mass. No medication changes. No bowel changes. No fever. No urinary symptoms. Timing/Duration: unsure, getting worse Severity: moderate Improving Factors: nothing Worsening Factors: nothing Associated Symptoms: denies symptoms Allergies/Adverse Reactions: Allergies NO KNOWN ALLERGY Allergy (Verified 02/25/19 22:58) Home Medications: Ambulatory Orders Losartan Potassium & Hydrochlo [Losartan Potassium/Hydroc 50-12.5 mg] 1 tab PO DAILY 06/06/18 Cyclobenzaprine HCl [Flexeril] 10 mg PO TID PRN #20 tab 04/11/19 Tramadol HCl 50 mg PO Q8HR PRN #20 tab 04/11/19 predniSONE [Prednisone] 20 mg PO DAILY #5 tab 04/11/19 Review of Systems - Review of Systems Constitutional: States: no symptoms reported EENTM: States: no symptoms reported Respiratory: States: no symptoms reported Cardiology: States: no symptoms reported Gastrointestinal/Abdominal: States: no symptoms reported Genitourinary: States: no symptoms reported Musculoskeletal: States: back pain Skin: States: no symptoms reported Neurological: States: see HPI Endocrine: States: no symptoms reported All other Systems: No Change from Baseline Past Medical History (General) - Patient Medical History Hx Seizures: No Hx Stroke: No Hx Dementia: No Hx Asthma: No Hx of COPD: No Hx Cardiac Disorders: No Hx Congestive Heart Failure: No Hx Pacemaker: No Hx Hypertension: Yes Hx Thyroid Disease: No Hx Diabetes: No Hx Gastroesophageal Reflux: Yes Hx Renal Disease: No Hx Cancer: No Hx of HIV: No Hx Hepatitis C: No Hx MRSA: Yes - left knee MRSA Source:: L knee sx Surgical History: Hysterectomy - Vaccination History Hx Tetanus, Diphtheria Vaccination: No Hx Influenza Vaccination: No Hx Pneumococcal Vaccination: No - Social History Hx Tobacco Use: No - Vapes Hx Chewing Tobacco Use: No Hx Alcohol Use: Yes Hx Substance Use: No Hx Substance Use Treatment: No Hx Depression: No Hx Physical Abuse: No Hx Emotional Abuse: No Hx Suspected Abuse: No - Female History Patient : No Family Medical History - Family History Mother Family History: No Known Living Status: Unknown Physical Exam - Physical Exam General Appearance: Alert, Anxious Eye Exam: bilateral normal Ears, Nose, Throat: hearing grossly normal, normal ENT inspection Neck: supple, other - chronic limited motion from previous surgery Respiratory: lungs clear, normal breath sounds, no respiratory distress, no accessory muscle use Cardiovascular/Chest: normal peripheral pulses, no edema Peripheral Pulses: radial,right: 2+, radial,left: 2+ Gastrointestinal/Abdominal: non tender - no palpable mass., soft Rectal Exam: deferred Back Exam: no vertebral tenderness, CVA tenderness (R) Extremity: normal range of motion, non-tender, normal inspection, no pedal edema, normal capillary refill 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 the patient is going to be written for Flexeril as a muscle relaxer. She is also going to be put on a week's worth of oral prednisone and she'll be written for tramadol for as needed use additionally. She can take rpza-ibr-lrupjac Aleve twice daily with food if she needs it as well. She needs to keep herself well-hydrated. She needs to do stretching exercises. Topical heat may also prove beneficial. If she keeps having these episodes then I would recommend seeing a neurologist for possibly an EMG and an MRI to see if she is having significant nerve root compression at that level. she is to follow back up with her primary care doctor within the next week. Urinalysis was reassuring. ER warnings were given. nilson [id number] [id number] - Results/Orders Results/Orders: Laboratory Results - last 24 hr 04/11/19 14:20 Urine Color Yellow Urine Appearance Clear Urine pH 6.0 Ur Specific [place] 1.015 Urine Protein Negative Urine Glucose (UA) Negative Urine Ketones Negative Urine Blood Negative Urine Nitrite Negative Urine Bilirubin Negative Urine Urobilinogen 0.2 Ur Leukocyte Esterase Negative Urine RBC 0-1 Urine WBC 0 Ur Epithelial Cells 0 Urine Bacteria 0 Departure - Departure Clinical Impression: Lumbar radiculopathy, chronic Disposition: Discharge to Home or Self Care Condition: Fair Departure Forms: ED Discharge - Pt. Copy, Patient Portal Self Enrollment Instructions: Radiculopathy Diet: regular diet Activity: increase activity as tolerated Referrals: Ashia Mishra NP [Primary Care Provider] - 1-2 Weeks Prescriptions: Tramadol HCl 50 mg PO Q8HR PRN #20 tab PRN Reason: Moderate Pain Cyclobenzaprine HCl [Flexeril] 10 mg PO TID PRN #20 tab PRN Reason: Muscle Spasms predniSONE [Prednisone] 20 mg PO DAILY #5 tab Home Medications: Ambulatory Orders Losartan Potassium & Hydrochlo [Losartan Potassium/Hydroc 50-12.5 mg] 1 tab PO DAILY 06/06/18 Cyclobenzaprine HCl [Flexeril] 10 mg PO TID PRN #20 tab 04/11/19 Tramadol HCl 50 mg PO Q8HR PRN #20 tab 04/11/19 predniSONE [Prednisone] 20 mg PO DAILY #5 tab 04/11/19 Additional Instructions: the patient is a 58-year-old female presenting to the emergency room secondary to right flank pain that i believe is due to radiculopathy with associated muscle spasms. the patient is going to be written for Flexeril as a muscle relaxer. She is also going to be put on a week's worth of oral prednisone and she'll be written for tramadol for as needed use additionally. She can take fxap-hzu-uprqpws Aleve twice daily with food if she needs it as well. She needs to keep herself well-hydrated. She needs to do stretching exercises. Topical heat may also prove beneficial. If she keeps having these episodes then I would recommend seeing a neurologist for possibly an EMG and an MRI to see if she is having significant nerve root compression at that level. she is to follow back up with her primary care doctor within the next week. Urinalysis was reassuring. ER warnings were given.
[2019-04-11 15:12] VITALS: BP 118/62; TEMP 98.8; O2SAT 96
== END 2019-04-11 15:08 | disposition home or self-care (01) ==
LOC: ER 13:45
DX: M54.16 Radiculopathy, lumbar region (principal); R10.9 Unspecified abdominal pain; I10 Essential (primary) hypertension; K21.9 Gastro-esophageal reflux disease without esophagitis; F17.290 Nicotine dependence, other tobacco product, uncomplicated; Z79.899 Other long term (current) drug therapy
CPT/HCPCS: 81001; J1885; J7512

== ENCOUNTER 2019-05-16 11:49 | Observation (INO) | payer OTHER ==
--- NOTE | 2019-05-16 11:50 | HP ---
SUPERVISING PHYSICIAN: Izabel Moseley MD CHIEF COMPLAINT: Frontal headache, nausea and vomiting with right lower quadrant abdominal pain. HISTORY OF PRESENT ILLNESS: Ms. Crenshaw is a 58-year-old female patient who developed a headache on 04/24/19 that she describes as being in the frontal region. She denies any vision changes, earaches or sore throat. She does have some nausea and had some vomiting associated with the pain. She does have a history of tension headaches, hypertension and insomnia. She was seen in Dr. Calvin's office on 05/15/19. She noted it was more of a pounding sensation like her head was exploding. She does note that she has had some mood swings and some spontaneous nosebleeds. She was started on pain medications with tramadol and steroid injection. She denied any neck pain or any trauma or any acute illness that she can associate to the onset of symptoms. She notes she does take Excedrin Migraine for the headache and it helps for about an hour, but then pain returns to a level of 10/10 on pain scale. She also notes she has had some issue with PTSD due to several horse related head injuries over past years. She has also had a root canal within the last year with associated tenderness in the left upper jaw, but denies any recent head injuries or accidents. Dr. Calvin saw the patient in followup today and it was noted that she was having some pain on palpation of the right lower quadrant. She had also been having some increasing nausea with vomiting and was notably dehydrated. Given that she was not having any significant relief of symptoms at home with [id number]-[id number] medications and possibly had some exacerbation of the symptoms due to dehydration, Dr. Calvin requested the patient be directly admitted for further evaluation and treatment of the frontal headache and right lower quadrant pain. PAST MEDICAL HISTORY: 1. Hypertension. 2. Tension headaches. 3. Insomnia. 4. Posttraumatic stress disorder. PAST SURGICAL HISTORY: 1. Cholecystectomy, laparoscopic in 2010. 2. Colon resection in 2006. 3. Emergency hysterectomy in 2006. 4. Cervical neck surgeries in 1977. 5. Right knee repair in 2006. 6. Left knee repair in 2019. HOME MEDICATIONS: 1. Tramadol 50 mg q.4h. as needed. 2. Losartan/hydrochlorothiazide 1 tablet daily. 3. Flexeril 10 mg t.i.d. as needed. FAMILY HISTORY: Father at age 70 with history of breast cancer. Mother at age unknown. She has two brothers, one half and one full. History is unknown. She has three sons. One son has brain damage due to a motor vehicle accident in 2000. She has two daughters who are healthy. 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 She is , and re- . She has five stepchildren. She does have history of smoking, but quit in 2009. She denies any alcohol or illicit drug use. She does note that she drinks caffeine on a daily basis. REVIEW OF SYSTEMS: CONSTITUTIONAL: Negative for any fevers, chills or general malaise. PHYSICAL EXAMINATION: HEENT: Tympanic membranes clear bilaterally. Oropharynx is pink with some mildly dry mucous membranes. NECK: Supple, nontender with full range of motion. No jugular venous distention noted. RESPIRATORY: Lungs clear to auscultation bilaterally without any rhonchi, wheezes or rales. CARDIOVASCULAR: Regular rate and rhythm without any appreciable murmurs, gallops, or rubs. ABDOMEN: Soft, nontender. Positive bowel sounds. EXTREMITIES: There is no edema. NEUROLOGIC: The patient is alert and oriented times three. Cranial nerves II- XII are grossly intact. Facial features are symmetrical. Extraocular movements are within normal limits. There is no nystagmus noted. LABORATORY: On admission, laboratory showed normal white count 7,600, hemoglobin 13.4, hematocrit 39.6, platelet count 306,000. Differential was without a left shift. Chemistries showed normal electrolytes with elevated BUN and creatinine ratio at 23.2 with creatinine 0.56. Liver functions were all within normal limits. Magnesium normal at 1.8. Amylase and lipase were both normal. Urinalysis pending. RADIOLOGY: CT of the abdomen without contrast is pending. MRI ordered through Dr. Calvin's office as an outpatient is pending. ASSESSMENT: 1. Tension headache, refractory to outpatient management, need more aggressive pain management control. 2. Nausea and vomiting associated with #1 without any meningeal signs. 3. Moderate dehydration, contributing to #1 and #2, requiring IV fluids. 4. Right lower quadrant abdominal pain, uncertain etiology, awaiting CT of the abdomen and pelvis. 5. Hypertension. 6. 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 PLAN: Ms. Crenshaw is going to be placed in observation for further close monitoring and initiation of IV fluids. Given that she is showing some clinical dehydration, we will start her on some normal saline with a bolus liter followed with 150 and reassess as needed. I anticipate length of stay to be one or two days, probably discharging tomorrow. We will try some Toradol IV with Phenergan and see if this will help her headache. She does have an MRI of the brain scheduled for tomorrow as an outpatient and she will have that completed prior to discharge. Until the patient can transition to outpatient management, we will continue to monitor and treat as needed. #[id number] [facility]
[2019-05-16] MEDS ORDERED: ALUM & MAG HYDROX-SIMETHICONE 30 ML UD PO PRN (12:13)
[2019-05-16] MEDS ORDERED: MAGNESIUM HYDROXIDE 30 ML UD PO PRN (12:13)
[2019-05-16] MEDS ORDERED: ACETAMINOPHEN 325 MG TAB PO PRN (12:13)
[2019-05-16] MEDS ORDERED: ONDANSETRON INJ 4 MG/2 ML VIAL IV PRN (12:13)
[2019-05-16] MEDS ORDERED: SODIUM CHLORIDE 0.9% (FLUSH) 10 ML SYG IV PRN (12:13)
[2019-05-16] MEDS ORDERED: IV SET AND CAP CHANGE INJ INJ SCH (12:30)
[2019-05-16] MEDS ORDERED: KETOROLAC TROMETHAMINE INJ 30 MG/ML VIAL IV ONE (13:03)
[2019-05-16] MEDS ORDERED: SODIUM CHLORIDE 0.9% 1000ML 1,000 ML IVS ONE (13:03)
[2019-05-16] MEDS ORDERED: PROMETHAZINE HCL INJ 12.5 MG in SODIUM CHLORIDE 0.9% 50ML 50 ML IVPB ONE (13:12)
[2019-05-16] MEDS ORDERED: SODIUM CHLORIDE 0.9% 50ML 50 ML ONE ×2 (13:30→19:59)
[2019-05-16] MEDS ORDERED: PROMETHAZINE HCL INJ 25 MG/ML VIAL ONE ×2 (13:30→19:58)
--- NOTE | 2019-05-16 14:30 | CT ---
EXAM DESCRIPTION: Abdoment/Pelvis w/o Contrast CLINICAL HISTORY: 58 years Female, RLQ pain COMPARISON: CT abdomen and pelvis with and without contrast dated 12/22/2018. TECHNIQUE: Contiguous 3 mm axial images were obtained from the lung bases to the level of the proximal femora without the administration of intravenous or oral contrast. Sagittal and coronal reconstructions were reviewed. FINDINGS: Limited evaluation of the solid organs due to the lack of intravenous contrast. THORAX: The imaged lower thorax demonstrates no gross abnormality. LIVER: The liver demonstrates normal size and density with no intrahepatic biliary ductal dilatation. GALLBLADDER: Surgically absent. PANCREAS: Appears normal with no cystic or solid lesions. SPLEEN: Normal ADRENAL GLANDS: Normal with no nodules or masses. KIDNEYS: Both kidneys are symmetric in size and contour with no hydronephrosis or nephrolithiasis or perinephric fluid collections. The visualized ureters appear grossly unremarkable. STOMACH: Small hiatal hernia with reflux. The stomach is not well-distended limiting detailed evaluation. A diverticulum is noted along the third portion of the duodenum. SMALL BOWEL: The small bowel loops demonstrate variable degrees of distention with no abnormal dilatation or other signs to suggest bowel obstruction. LARGE BOWEL: Changes of partial colonic resection and anastomosis of the sigmoid colon are noted. Remainder of the visualized colon demonstrates few scattered diverticuli. The appendix appears normal. No evidence of free intraperitoneal air or fluid. RETROPERITONEUM: The abdominal aorta is nonaneurysmal with moderate atherosclerosis. The inferior vena cava is normal in size and caliber. No abnormally enlarged retroperitoneal lymph nodes are identified. URINARY BLADDER:The urinary bladder is well-distended with no gross abnormality. Uterus and ovaries are surgically absent. ADDITIONAL FINDINGS: 1.9 cm fat-containing umbilical hernia is noted. 6 cm infraumbilical midline abdominal wall defect with herniation of fat. BONES: Mild degenerative changes are identified in the visualized bones.No evidence of osteophytic or osteoblastic lesions. IMPRESSION: No acute intra-abdominal or intrapelvic process. This exam was performed according to our departmental dose-optimization program, which includes automated exposure control, adjustment of the mA and/or kV according to patient size and/or use of iterative reconstruction technique. Electronically signed by: Meaghan Hahn MD 05/16/2019 2:28 PM CDT
[2019-05-16] MEDS: SODIUM CHLORIDE 0.9% 1000ML 1,000 ML IVS PRN ×2 (15:42→22:43)
[2019-05-16] MEDS ORDERED: OMEPRAZOLE CAP 20 MG CAP ONE (19:18)
[2019-05-16] MEDS ORDERED: PROMETHAZINE HCL INJ 12.5 MG in SODIUM CHLORIDE 0.9% 50ML 50 ML IVPB PRN (19:54)
[2019-05-16] MEDS ORDERED: KETOROLAC TROMETHAMINE INJ 30 MG/ML VIAL IV PRN (19:54)
[2019-05-16] MEDS: KETOROLAC TROMETHAMINE INJ 30 MG/ML VIAL IV SCH (20:03)
[2019-05-17] MEDS: KETOROLAC TROMETHAMINE INJ 30 MG/ML VIAL IV SCH ×2 (01:52→08:51)
[2019-05-17] MEDS: SODIUM CHLORIDE 0.9% 1000ML 1,000 ML IVS PRN (05:39)
[2019-05-17] MEDS ORDERED: OMEPRAZOLE CAP 20 MG CAP PO SCH (06:30)
[2019-05-17] MEDS ORDERED: SUMAtriptan SUCCINATE INJ 6 MG/0.5 ML VIAL SUBCU ONE (09:49)
[2019-05-17 10:01] VITALS: TEMP 98.2; O2SAT 97
[2019-05-17 11:23] VITALS: BP 118/86
--- NOTE | 2019-05-17 19:53 | DS ---
SUPERVISING PHYSICIAN: Clay Moseley M.D. ADMISSION DIAGNOSIS: 1. Tension headache, refractory to outpatient management, need more aggressive pain management control. 2. Nausea and vomiting associated with #1 without any meningeal signs. 3. Moderate dehydration, contributing to #1 and #2, requiring IV fluids. 4. Right lower quadrant abdominal pain, uncertain etiology, awaiting CT of the abdomen and pelvis. 5. Hypertension. 6. 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 DISCHARGE DIAGNOSIS: 1. Tension headache, again refractory to outpatient management being followed by Dr. Calvin with MRI pending on discharge. 2. Nausea and vomiting associated with #1 without any meningeal signs improved with fluids. 3. Moderate dehydration, contributing to #1 and #2, resolved with IV fluids. 4. Right lower quadrant abdominal pain secondary to nausea and vomiting with no acute findings on CT to indicate acute appendicitis or other acute pathology with pain not present at discharge. 5. Hypertension, stable. 6. Posttraumatic stress disorder due to traumatic brain injury possibly contributing to #1. REASON FOR HOSPITALIZATION: Ms. Crenshaw is a 58-year-old female patient who developed a headache on 04/24/19 that she describes as being in the frontal region. She denies any vision changes, earaches or sore throat. She does have some nausea and had some vomiting associated with the pain. She does have a history of tension headaches, hypertension and insomnia. She was seen in Dr. Calvin's office on 05/15/19. She noted it was more of a pounding sensation like her head was exploding. She does note that she has had some mood swings and some spontaneous nosebleeds. She was started on pain medications with tramadol and steroid injection. She denied any neck pain or any trauma or any acute illness that she can associate to the onset of symptoms. She notes she does take Excedrin Migraine for the headache and it helps for about an hour, but then pain returns to a level of 10/10 on pain scale. She also notes she has had some issue with PTSD due to several horse related head injuries over past years. She has also had a root canal within the last year with associated tenderness in the left upper jaw, but denies any recent head injuries or accidents. Dr. Calvin saw the patient in followup today and it was noted that she was having some pain on palpation of the right lower quadrant. She had also been having some increasing nausea with vomiting and was notably dehydrated. Given that she was not having any significant relief of symptoms at home with [id number] medications and possibly had some exacerbation of the symptoms due to dehydration, Dr. Calvin requested the patient be directly admitted for further evaluation and treatment of the frontal headache and right lower quadrant pain. LABORATORY STUDIES: On admission showed normal CBC with white count 7,600, no left shift. Chemistries were unremarkable with normal creatinine of 0.56. Normal electrolytes. Liver functions, magnesium 1.8, amylase and lipase were all normal. Urinalysis within normal limits. RADIOLOGY: She had an abdominal and pelvis CT on admission and per radiology interpretation no acute intraabdominal or intrapelvic process is noted. HOSPITAL COURSE: Ms. Crenshaw was admitted for questionable appendicitis with right lower quadrant pain associated with nausea and vomiting and a tension headache. She was given Toradol and Phenergan which did help in treatment of her headache symptoms. She is no longer having any nausea or vomiting. She is tolerating a regular diet. She is no longer complaining of abdominal pains. We did try some Imitrex prior to discharge as well as she was to have an MRI on discharge as scheduled for further workup through Dr. Calvin's office for the migraine headache. She was showing to be stable with pain controlled while she was asleep, but the headache did recur once she was awake. Clinically she had improved well enough to continue with outpatient management. PLAN: Ms. Crenshaw was to be discharged to followup with Dr. Calvin as scheduled. She is to have any MRI shortly after discharge with those results being sent to Dr. Calvin's office. Diet was to resume usual diet. Activity is increase activity as tolerated. She was encouraged to push fluids to prevent dehydration. She was to take [id number] pain management, including Acetaminophen or Excedrine Migraine for control of her headache. She was given a prescription for nausea p.r.n. for Zofran. Otherwise no other medications were prescribed at discharge. DISPOSITION: The patient is discharged home after MRI with those results being sent to Dr. Calvin's office. Condition on discharge was stable and improved. #[id number] [facility]
== END 2019-05-17 11:00 | disposition home or self-care (01) ==
LOC: INTOOBSV 11:49 → MS 11:49
PROVIDERS: ADMIT Nurse Practitioner Family; ATTEND Nurse Practitioner Family
DX: G44.201 Tension-type headache, unspecified, intractable (principal); E86.0 Dehydration; R10.31 Right lower quadrant pain; I10 Essential (primary) hypertension; F43.10 Post-traumatic stress disorder, unspecified; G47.00 Insomnia, unspecified; K42.9 Umbilical hernia without obstruction or gangrene; K44.9 Diaphragmatic hernia without obstruction or gangrene; K57.10 Diverticulosis of small intestine without perforation or abscess without bleeding; Z87.820 Personal history of traumatic brain injury; Z79.891 Long term (current) use of opiate analgesic; Z79.899 Other long term (current) drug therapy; Z88.8 Allergy status to other drugs, medicaments and biological substances; Z87.891 Personal history of nicotine dependence; Z90.49 Acquired absence of other specified parts of digestive tract; Z90.710 Acquired absence of both cervix and uterus; Z80.3 Family history of malignant neoplasm of breast
CPT/HCPCS: 96361 ×2; 96365; 96375; 96376 ×2; 96372; J1885 ×4; J2550 ×2; J7030 ×4; A4216 ×2; J3030; 80053; 36415 ×2; 82150; 81001; 85025; 83690; 83735; 74176; 94760 ×2; G0378

== ENCOUNTER → 2019-05-17 | Outpatient (CLI) | payer OTHER ==
--- NOTE | 2019-05-17 14:21 | MRI ---
EXAM DESCRIPTION: Brain w/oContrast CLINICAL HISTORY: TENSION TYPE HEADACHE COMPARISON: None TECHNIQUE: Multiplanar, multi sequence MR images of the head are obtained without IV gadolinium contrast using standard imaging protocol. FINDINGS: The midline structures are not displaced. Sulci are age appropriate. The lateral, third, and fourth ventricles are normal in size, shape, and anatomic positioning. Normal griffith-white differentiation is seen. Normal flow voids are seen in the major intracranial vessels including the dural venous sinuses. There is no evidence of mass, mass effect, hydrocephalus, or acute intracranial hemorrhage. No abnormal extra-axial fluid collections are seen. Mild right greater than left increased FLAIR/T2 signal in the periventricular white matter and white matter and centrum semiovale. No diffusion restriction. Gradient echo images show no abnormal signal. The pituitary is unremarkable. Visualized paranasal sinuses are unremarkable. The visualized orbits and mastoid air cells are unremarkable. IMPRESSION: Minimal nonspecific periventricular white matter signal changes are unknown clinical significance, but could represent early old small vessel ischemic type changes versus sequela of chronic migraine headaches. No MRI evidence of acute intracranial ischemia, mass, or mass effect. Electronically signed by: Francisco Quinonez MD 05/17/2019 2:19 PM CDT
== END ==
LOC: MRI 13:07
PROVIDERS: ATTEND Family Medicine
DX: G44.209 Tension-type headache, unspecified, not intractable (principal); R90.82 White matter disease, unspecified

== ENCOUNTER → 2019-05-23 | Outpatient (CLI) | payer OTHER | LOC: GMAM 16:43 | PROVIDERS: ATTEND Family Medicine | DX: R51 Headache (principal) ==